=== PATIENT | male | born 1960 | race Caucasian/White ===

== ENCOUNTER → 2016-09-13 | Outpatient (CLI) | payer OTHER ==
[~2016-09-13] MED LIST: ALIGN4 MG; BENAZEPRIL-HCT1 EAC1 PO; DOXYCYCLINE100 MG PO; JANUMET 50-1,01 EACH PO; LEVAQUIN 750 M750 MG; LEVAQUIN500 MG PO; LIPITOR80 MG PO; NORCO 5-325 TA1 EACH PO; PLAVIX75 MG PO
== END | disposition disaster alternative care site (69) ==
LOC: GRAD 08:00
DX: I73.9 Peripheral vascular disease, unspecified (principal); L98.499 Non-pressure chronic ulcer of skin of other sites with unspecified severity; I70.208 Unspecified atherosclerosis of native arteries of extremities, other extremity; I74.5 Embolism and thrombosis of iliac artery; I74.8 Embolism and thrombosis of other arteries; E27.8 Other specified disorders of adrenal gland
CPT/HCPCS: Q9967

== ENCOUNTER 2016-09-20 15:27 | Inpatient (IN) | payer OTHER ==
[~2016-09-20] VITALS: Ht 193 cm; Wt 136.4 kg
--- NOTE | ~2016-09-20 | CON ---
an updated addendum is currently being transcribed. d: 09/21/16 0049 t: 09/21/16 0857, CONSULTATION REPORT
--- NOTE | ~2016-09-20 | CON ---
PATIENT'S NAME: LIONEL SIMMONS [facility] AGE: 56 Y [address] ROOM: [place] [address] LOCATION: GPCU ADMIT DATE: 09/20/2016 Consultation DISCHARGE DATE: FAMILY PHYSICIAN: Christian Harris MD ATTENDING PHYSICIAN: YENNIFER WRIGHT DATE OF CONSULTATION: 09/21/2016 REFERRING PHYSICIAN: HUGO BARKSDALE MD INFECTIOUS DISEASE CONSULTATION REASON FOR EVALUATION: Osteomyelitis, PVD. CHIEF COMPLAINT: The patient states he has a sore in his foot. HISTORY OF PRESENT ILLNESS: Mr. Simmons is a 56-year-old man with diabetes. He is also apparently with symptomatic vascular disease. Starting several months ago, he noticed a wound to base of lateral side of the right 5th toe. He was seen by Podiatry. He received some antibiotics. He cannot tell me what he received. Minimal improvement. About 3 weeks ago, there was some sort of surgical procedure. I do not have any details of this. He was given IV antibiotics for about 8 days. He cannot tell me what antibiotic this was. It was once a day. He was then changed to levofloxacin, which he was on up until admission. Unfortunately, there was not much improvement and so he has been admitted here. He underwent vascular study today, which showed significant disease, in need of bypass. He has not had any fevers. I am asked to evaluate. I do not have any old culture data. I do not have any old radiology. I do not have any palpations surgical notes. This makes evaluation somewhat difficult. The patient denies any fevers. He denies any ascending cellulitis. Apparently, there was quite amount of erythema before he started the first antibiotic but this has resolved. PAST MEDICAL HISTORY: Significant for diabetes mellitus, peripheral vascular disease, high blood pressure. ALLERGIES: NO KNOWN ANTIBIOTIC ALLERGIES. SOCIAL HISTORY: Positive for tobacco use with quitting about a day or so prior to admission. No alcohol or drug abuse. PATIENT'S NAME: LIONEL SIMMONS [facility] AGE: 56 Y [address] ROOM: [place] [address] LOCATION: GPCU ADMIT DATE: 09/20/2016 Consultation DISCHARGE DATE: FAMILY PHYSICIAN: Christian Harris MD ATTENDING PHYSICIAN: YENNIFER WRIGHT FAMILY HISTORY: Positive for heart disease and malignancy. REVIEW OF SYSTEMS: Pertinent positives include: 1. Neurologic: The patient with some neuropathy of his foot but still has pain at the lateral aspect. 2. Vascular: The patient with claudication type symptoms. As the patient denies other symptoms, remainder of 11-system review of systems is otherwise negative. PHYSICAL EXAMINATION: VITAL SIGNS: Temperature 98.3, heart rate 74, blood pressure 147/68. GENERAL: The patient is lying in bed, in no acute distress. Eating a sandwich. HEENT: The patient is anicteric. No conjunctival lesions noted. Ears, Nose, and Throat: Food debris. CARDIOVASCULAR: Heart is regular rate and rhythm. RESPIRATORY: Breathing is easy and unlabored. Lungs are clear anterolaterally. GASTROINTESTINAL: Abdomen is soft, nontender. Normoactive bowel sounds are present. GENITOURINARY: No suprapubic tenderness. NEUROLOGIC: The patient is awake, alert, appropriate in conversation. No encephalopathy. LYMPHATICS: No popliteal lymphadenopathy. MUSCULOSKELETAL: No effusions of ankles, knees, fingers, wrists, elbows. INTEGUMENTARY: The patient with no cellulitis of the right foot. He does have sutures intact on the lateral aspect of the foot. LABORATORY STUDIES: Blood cultures here are negative. ASSESSMENT AND RECOMMENDATIONS: Foot osteomyelitis? I have no radiology operative notes or cultures, so I am not even entirely certain that there is osteomyelitis present. Given the longstanding nature, I would suspect that there is some, but it would be nice to have actual proof. Can outpatient records be obtained? For now, I would keep him off antibiotics. There is no evidence of any soft tissue infection. He is to have vascular work done to try to increase blood flow. I would recommend if old cultures are not forthcoming or useful, obtaining new cultures of the bone off antibiotics for a week. If we are to try to sterilize bone in a patient with significant vascular disease, we need pathogen to know what antibiotics to use for best efficacy. As long as there PATIENT'S NAME: LIONEL SIMMONS [facility] AGE: 56 Y [address] ROOM: [place] [address] [facility] ADMIT DATE: 09/20/2016 Consultation DISCHARGE DATE: FAMILY PHYSICIAN: Christian Harris MD ATTENDING PHYSICIAN: YENNIFER WRIGHT K is no ascending cellulitis, there is no harm to being off antibiotics for a week or so. The alternative would be a 5th ray amputation, but it would be nice to have actual evidence of osteomyelitis prior to go there. Thank you allowing me to participate in the care of Mr. Simmons. MD JEFFRY PHAN/praveen /[id number] d: 09/21/[id number] t: 09/22/16 1054, CONSULTATION REPORT
--- NOTE | ~2016-09-20 | CON ---
PATIENT'S NAME: LIONEL SIMMONS [facility] AGE: 56 Y [address] ROOM: [address] [address] [facility] ADMIT DATE: 09/20/2016 Consultation DISCHARGE DATE: FAMILY PHYSICIAN: Christian Harris MD ATTENDING PHYSICIAN: YENNIFER JOHNSON DATE OF CONSULTATION: 09/21/2016 REFERRING PHYSICIAN: HUGO BARKSDALE MD REASON FOR CONSULTATION: Preop evaluation as well as need for peripheral angiogram via right wrist access for nonhealing wound and severe claudication symptoms. HISTORY OF PRESENTING ILLNESS: The patient is a very pleasant, 56-year-old male who has a history of tobacco abuse and severe peripheral vascular disease with evidence of osteomyelitis to the right foot, post debridement about 3 weeks ago by a horticulture superintendent. He also is diabetic, and there is family history of premature coronary artery disease. After his foot surgery, the wound failed to heal. He had evidence of acute infection as well, and he was started on IV antibiotics for 8 days. During his previous visit, he had a CTA that showed bilateral common femoral artery stenosis with multiple areas of high-grade stenosis and occlusion in the right common iliac and the right common femoral artery with occlusion of the proximal and mid right SFA and then an occlusion of the distal left SFA with areas of severe stenosis at the left common femoral artery. There is occlusion of the distal right popliteal and at least [id number] stenosis of the distal left popliteal artery as well. There is 3-vessel runoff bilaterally. The patient has severe claudication with ambulation and can walk, at the most, about 30 yards. He denies rest claudication. Prior to all of this, about 6 months ago, he was more active and used to lynch and fish. He does not recall any severe symptoms of chest discomfort; however, his functional capacity has been declining in the past 3 months at least. He denies fever or chills. No stroke-like symptoms. No other acute complaints at this time except for the pain in his foot on the right side. PAST MEDICAL HISTORY: 1. PVD. 2. Hypertension. 3. Hyperlipidemia. 4. Osteomyelitis of the right ankle and foot. PAST SURGICAL HISTORY: 1. Bilateral shoulder surgeries. 2. Appendectomy. PATIENT'S NAME: LIONEL SIMMONS [facility] AGE: 56 Y [address] ROOM: [address] [address] LOCATION: GPCU ADMIT DATE: 09/20/2016 Consultation DISCHARGE DATE: FAMILY PHYSICIAN: Christian Harris MD ATTENDING PHYSICIAN: YENNIFER JOHNSON FAMILY HISTORY: Positive for premature history of coronary artery disease in his father, he had an CT at age 59. SOCIAL HISTORY: The patient has extensive tobacco use, he reports he quit just 2 days ago. He smoked about 1-1/2 packs per day prior to this. Social drinker. No illicit drug abuse or alcohol abuse. REVIEW OF SYSTEMS: All review of systems discussed with the patient. Pertinent positives and negatives mentioned in the History of Presenting Illness. MEDICATIONS: 1. Cefazolin IV. 2. Alogliptin 12.5 b.i.d. 3. Glucophage XR 1000 b.i.d. 4. HydroDIURIL 25 mg q.a.m. 5. Lipitor 80 q.h.s. 6. Plavix 75 daily. 7. Zestril 20 mg q.a.m. 8. Novolin sliding scale insulin. ALLERGIES: NONE. PHYSICAL EXAMINATION: VITAL SIGNS: Blood pressure is 151/72, afebrile, pulse is 68, O2 saturation is 94% on room air, and respirations 14. CONSTITUTIONAL: The patient is awake, alert, and not in any apparent distress. LUNGS: Clear to auscultation bilaterally, nonlabored. CARDIAC: Regular rhythm. No murmurs, gallops, or rubs. VASCULAR: No palpable pedal pulses. ABDOMEN: Soft. Bowel sounds positive. Nontender and nondistended. SKIN: Warm and dry. There is ulcer on the right side of his foot, and there is a dressing at this time. EXTREMITIES: No significant lower extremity edema. NEUROLOGIC: He is alert and able to move all extremities against gravity. Speech is normal. PSYCHIATRIC: Oriented to time, place, and person. HEENT: Mucous membranes moist. Eyes: No xanthelasma. LABORATORY DATA: Sodium 140, potassium 4.3, chloride 108, CO2 of 24, glucose 99, BUN 14, and PATIENT'S NAME: LIONEL SIMMONS [facility] AGE: 56 Y [address]: [address] [address] [facility] ADMIT DATE: 09/20/2016 Consultation DISCHARGE DATE: FAMILY PHYSICIAN: Christian Harris MD ATTENDING PHYSICIAN: YENNIFER JOHNSON creatinine 0.9. Albumin 3.6 and globulin 3.6. AST 17 and ALT 25. GFR greater than 60. CPK 172, CK-MB 3.9, and troponin 0.04. The proBNP was 720. A1c 6.8. WBC 10.1, platelets 250, and H and H 15.7 and 47.2. Vascular studies: Arterial duplex: ROMMEL right side 0.55, left side 0.68. 75 to 99 right CLINICAL PHARMACOLOGIST stenosis, 50 to 75 right mid SFA stenosis, and right mid to distal SFA appears occluded. On the left side, 75% to 99% left CLINICAL PHARMACOLOGIST stenosis and 75 to 99 left PFA stenosis. Chest x-ray shows no acute cardiopulmonary process. IMPRESSION AND PLAN: 1. Severe peripheral vascular disease with severe intermittent claudication affecting the right lower extremity, and symptoms occur with walking as less as 30 yards, and he needs to rest for 10 minutes before he can resume activities. 2. History of numerous cardiovascular risk factors including positive tobacco use, peripheral vascular disease, hypertension, diabetes, hyperlipidemia, and positive family history of premature coronary artery disease. Prior to potential upcoming high-risk vascular surgery, it is indicated to proceed with a stress test to evaluate for ischemic burden and then decide whether he needs a coronary angiogram to define his coronary anatomy prior to high-risk surgery. I will proceed with a stress test first, and that way, if he needs a catheterization, that can be done at the same time as the peripheral angiogram. Dr. Johnson would like to proceed at this time with a peripheral angiogram and runoff to define the peripheral vasculature as well as the lesion severities and plan for high-risk surgery and possible hybrid surgery with open as well as endovascular options based on the peripheral angiogram. Continue guideline-directed medical therapy. Encouraged to stop smoking. Aggressive blood pressure and lipid control. We will also get fasting lipid profile in the morning and adjust his lipid management according to the numbers we get. Risks and benefits of the cardiac cath as well as peripheral angiogram discussed with the patient. Risks of bleed, bruise, infection 1 in 100 cases, risk of heart attack, , stroke, CT, losing a limb, and ending up on dialysis less than 1 in 1000 cases. The patient does not have any contrast allergies. He understands and is agreeable to proceed with plan. Thank you very much for allowing us to participate in the care of Mr. Simmons. PATIENT'S NAME: LIONEL SIMMONS [facility] AGE: 56 Y [address] ROOM: [place] [address] [facility] ADMIT DATE: 09/20/2016 Consultation DISCHARGE DATE: FAMILY PHYSICIAN: Christian Harris MD ATTENDING PHYSICIAN: YENNIFER JOHNSON CESAR GALAN MD AT/modl /[id number] d: 09/21/16 1225 t: 09/26/16 1339, CONSULTATION REPORT
--- NOTE | ~2016-09-20 | ENPV ---
Vascular Lower Arterial Plethysmography Procedure Demographics Patient Name LIONEL SIMMONS Date of Study 09/24/2016 Patient Number [id number] Gender Male Date of 1960 Age 56 Visit Number [id number] Height 76 Accession Number [id number] Weight 304.9 Referring Steven Abreu MD Interpreting Alex Rocha MD Physician Alex Rocha MD Physician Physician Ordering Physician Alex Rocha First Helper Meter Repair Shop Supervisor Jaren Nelson T Conclusions Summary Ankle brachial index on the right is .65 for PT moderate arterial disease at rest. Ankle brachial index on the right is .40 for DP severe arterial disease at rest. Could not find a right Toe waveform,unable to perform TBI. Procedure Type of Study: Extremities Arteries:Lower Arterial Plethysmography, Ankle/Brachial Indicies. Indications for Study:Non Healing Wounds. Appropriate Use Criteria:9 Allergies - No known allergies. Patient Status:Routine. Study Location:Inpatient Portable. Technical Quality:Adequate visualization. Risk Factors - The patient's risk factor(s) include: insulin-treated diabetes mellitus, dyslipidemia, lack of physical activity and arterial hypertension. - The patient has a current/recent (within 1 year) tobacco history. - The patient's last creatinine was 0.9 mg/dl. Velocities are measured in cm/s ; Diameters are measured in cm Pressures + +----+ +---------+--------+ + + ! ! !Right ! !Left ! ! ! + +----+ +---------+--------+ + + !Location ! !Pressure !Ratio ! !Pressure !Ratio ! + +----+ +---------+--------+ + + !Ankle PT ! !94 !0.65 ! ! ! ! + +----+ +---------+--------+ + + !DP ! !57 !0.4 ! ! ! ! + +----+ +---------+--------+ + + - Brachial Pressure:Right: 144.Left:124. - ROMMEL:Right: 0.65. Signature dtt: YENNIFER WRIGHT dtd: 09/24/16 104 Physician Self Edit
--- NOTE | ~2016-09-20 | ECHO ---
Transthoracic Echocardiography Report (TTE) Demographics Patient Name LIONEL SIMMONS Date of Study 09/21/2016 Patient Number [id number] Visit Number [id number] Date of 1960 Room Number G6303 Accession Number [id number] Gender Male Age 56 year(s) Referring Stevenvikash Abreu Rail Signal Designer Gianna Patrick RVT, Physician MD KATY Rocha Physician Interpreting Estrada Rubio Manager Asset Management Physician Supervising Ordering Physician Madhavi Tapia MD, MD/MLP Nurse Stress Pressurised Container Filler Conclusions Contractility Score Summary Normal Left Ventricular contractility was noted. Summary Normal LV/RV size and systolic function. The estimated left ventricular ejection fraction is 60-65%. Moderate concentric left ventricular hypertrophy. Diastolic assessment reveals normal relaxation. No significant valvular abnormalities. No evidence of pericardial effusion. Procedure Type of Study TTE procedure:2D Echocardiogram. Procedure Date Date: 09/21/2016 Start: 10:45 AM Study Location: Inpatient Portable Technical Quality: Adequate visualization Indications:Coronary artery disease and pre surgical clearance. Appropriate Use Criteria: 8 Patient Status: Routine Rhythm: NSR HR: 68 bpm BP: 153/67 mmHg Allergies - No known allergies. M-Mode/2D Measurements LV Diastolic Dimension: 5.08 cm LV Systolic Dimension: 3.07 cm LV Septum Diastolic: 1.67 cm LV PW Diastolic: 1.59 cm AO Root Dimension: 3.1 cm Cardiac Output: 6.67 l/min AV Cusp Separation: 1.8 cm RV Diastolic Dimension: 3.19 cm LA volume: 59 ml LVOT: 2.5 cm RV Base: 3.33 cm LVOT VTI: 20 cm RV Mid: 2.07 cm LV Stroke volume: 98.12 ml TAPSE: 3.15 cm TDI-S': 16.6 cm/s Doppler Measurements AV Peak Velocity: 1.23 m/s MV Peak E-Wave: 0.73 m/s AV Peak Gradient: 6.05 mmHg MV Peak A-Wave: 0.53 m/s AV Mean Gradient: 3 mmHg MV E/A Ratio: 1.38 LVOT Peak Velocity: 1 m/s MV P1/2t: 76 msec TR Gradient:25.4 mmHg PV Peak Velocity: 0.94 m/s Estimated RAP:5 mmHg PV Peak Gradient: 3.54 mmHg Estimated RVSP: 30 mmHg Estimated PASP: 30.4 mmHg E' Septal Velocity: 0.06 m/s A' Septal Velocity: 0.09 m/s E' Lateral Velocity: 0.09 m/s A' Lateral Velocity: 0.11 m/s Findings Left Ventricle Moderate concentric left ventricular hypertrophy. Diastolic assessment reveals normal relaxation. Right Ventricle Normal right ventricle structure and function. Left Atrium Normal left atrial size. There is no evidence of patent foramen ovale or atrial septal defect by color Doppler. Right Atrium Normal right atrial size. IVC measures 2.79 cm with inspiratory collapse. Mitral Valve Normal mitral valve structure and function. Trivial mitral regurgitation by color Doppler. Aortic Valve The aortic valve is mildly sclerotic. Tricuspid Valve Normal tricuspid valve structure and function. Trivial tricuspid regurgitation by color Doppler. Pulmonic Valve Normal pulmonic valve structure and function. Pericardial Effusion No evidence of pericardial effusion. Miscellaneous The ascending aorta maximum diameter measures 3.6 cm. Pleural Effusion No evidence of pleural effusion. Contractility Score LV regional wall motion:(0-Non visualized 1-Normal 2-Hypokinesis 3-Akinesis 4-Dyskinesis 5-Aneurysm) Signature dtt: CESAR GALAN dtd: 09/21/16 1045 Physician Self Edit
--- NOTE | ~2016-09-20 | ENPV ---
Vascular Lower Extremity Vein Mapping and Lower Extremities DVT Study Procedure Demographics Patient Name LIONEL SIMMONS Date of Study 09/21/2016 Patient Number [id number] Gender Male Date of 1960 Age 56 Visit Number [id number] Height 76 Accession Number [id number] Weight 304.9 Referring Steven Abreu MD Interpreting Alex Rocha MD Physician Corina Davey Physician NET DEVELOPER WITH [employer] Physician Ordering Physician Corina Davey Pbx Inspector NET DEVELOPER WITH [employer] Corduroy Brusher Operator Romain Vila RVT Conclusions Summary No evidence of deep vein thrombosis or superficial thrombus in bilateral lower extremities. Procedure Type of Study: Veins:Lower Extremity Vein Mapping, Vein Mapping, Lower Extremities DVT Study, Venous Duplex Lower Extremity Bilateral. Indications for Study:Chronic Ulcer, Pre-op for vein harvesting and Vein mapping. Appropriate Use Criteria:8 Patient Status:Routine. Study Location:Imaging Center. Technical Quality:Adequate visualization. Risk Factors - The patient's risk factor(s) include: diabetes mellitus and arterial hypertension. - The patient has a current/recent (within 1 year) tobacco history. Velocities are measured in cm/s ; Diameters are measured in cm Right Lower Extremities DVT Study Measurements Right 2D and Doppler Measurements + + + + +------+------+ + !Location !Visualized!Compressibility!Thrombosis!Signal!Reflux!Reflux ! ! ! ! ! ! ! !(sec) ! + + + + +------+------+ + !GSV Thigh !Yes !Yes !None !Phasic!No ! ! + + + + +------+------+ + !Common !Yes !Yes !None !Phasic!No ! ! !Femoral ! ! ! ! ! ! ! + + + + +------+------+ + !Prox !Yes !Yes !None !Phasic!No ! ! !Femoral ! ! ! ! ! ! ! + + + + +------+------+ + !Mid Femoral!Yes !Yes !None !Phasic!No ! ! + + + + +------+------+ + !Dist !Yes !Yes !None !Phasic!No ! ! !Femoral ! ! ! ! ! ! ! + + + + +------+------+ + !Popliteal !Yes !Yes !None !Phasic!No ! ! + + + + +------+------+ + !Gastroc !Yes !Yes ! ! ! ! ! + + + + +------+------+ + !PTV !Yes !Yes ! ! ! ! ! + + + + +------+------+ + !Peroneal !Yes !Yes ! ! ! ! ! + + + + +------+------+ + Left Lower Extremities DVT Study Measurements Left 2D and Doppler Measurements + + + + +------+------+ + !Location !Visualized!Compressibility!Thrombosis!Signal!Reflux!Reflux ! ! ! ! ! ! ! !(sec) ! + + + + +------+------+ + !GSV Thigh !Yes !Yes !None !Phasic!No ! ! + + + + +------+------+ + !Common !Yes !Yes !None !Phasic!No ! ! !Femoral ! ! ! ! ! ! ! + + + + +------+------+ + !Prox !Yes !Yes !None !Phasic!No ! ! !Femoral ! ! ! ! ! ! ! + + + + +------+------+ + !Mid Femoral!Yes !Yes !None !Phasic!No ! ! + + + + +------+------+ + !Dist !Yes !Yes !None !Phasic!No ! ! !Femoral ! ! ! ! ! ! ! + + + + +------+------+ + !Popliteal !Yes !Yes !None !Phasic!No ! ! + + + + +------+------+ + !Gastroc !Yes !Yes ! ! ! ! ! + + + + +------+------+ + !PTV !Yes !Yes ! ! ! ! ! + + + + +------+------+ + !Peroneal !Yes !Yes ! ! ! ! ! + + + + +------+------+ + Velocities are measured in cm/s ; Diameters are measured in cm + ++--------++--------+ !Superficial - Great Saphenous Vein !!Right !!Left ! + ++--------++--------+ !Location !!Diameter!!Diameter! + ++--------++--------+ !Sapheno Femoral Junction !!0.44 !!0.64 ! + ++--------++--------+ !GSV High Thigh !!0.3 !!0.31 ! + ++--------++--------+ !GSV Mid Thigh !!0.32 !!0.28 ! + ++--------++--------+ !GSV Low Thigh !!0.31 !!0.34 ! + ++--------++--------+ !GSV Knee !!0.35 !!0.3 ! + ++--------++--------+ !GSV High Calf !!0.3 !!0.25 ! + ++--------++--------+ !GSV Mid Calf !!0.32 !!0.27 ! + ++--------++--------+ !GSV Low Calf !!0.35 !!0.28 ! + ++--------++--------+ - Number of vein branches on the right side:3 below knee. Signature dtt: YENNIFER WRIGHT dtd: 09/21/16 0933 Physician Self Edit
--- NOTE | ~2016-09-20 | OR ---
PATIENT'S NAME: LIONEL SIMMONS [facility] AGE: 56 Y [address] ROOM: [address] [address] LOCATION: GPCU ADMIT DATE: 09/20/2016 OR/Procedure Report DISCHARGE DATE: FAMILY PHYSICIAN: Christian Harris MD ATTENDING PHYSICIAN: AJ JOHNSON SURGEON: Aj Johnson MD HANGERSMITH: DATE OF PROCEDURE: 09/22/2016 POSTOPERATIVE DIAGNOSIS: Critical limb ischemia of the right lower extremity. POSTOPERATIVE DIAGNOSIS: Critical limb ischemia of the right lower extremity. PROCEDURE: Right common femoral endarterectomy with bovine pericardial patch. OPEN HEARTH STOCKYARD SUPERVISOR: ROSALIA Jo. ANESTHESIA: General. ESTIMATED BLOOD LOSS: 700 mL. OPERATIVE FINDINGS: Strong DP signal at the end of the case. DESCRIPTION OF PROCEDURE: The patient was brought to the operating room, placed under general anesthesia, prepped and draped in a sterile manner, preoperative time-out was performed. The patient received preoperative antibiotics. We made a standard incision in a vertical manner in the right groin, dissected down the fascia, incised the fascia in a longitudinal manner, and dissected out the superficial femoral artery, the profunda, as well as the common femoral artery. The patient had extensive plaque extending up the common femoral artery underneath the inguinal ligament. We gave 5000 units of heparin, [place] [id number] for the case which was reversed with use of protamine. We placed a clamp as far distally as we could and then placed a clamp on the SFA and the profunda. We knew the SFA was occluded from our preop imaging. We made an arteriotomy with an 11 blade and extended with De Oliveira scissors along the common femoral. We then removed the plaque in its entirety. We cleaned up as far as we could with a pituitary clamp to remove any further plaque. We then patched it using 2 running 6-0 Dumfries sutures with a bovine patch. We removed the clamps. There was a strong pulse and a strong DP signal in the foot at that time; however, the proximal pulse appeared weak and it appeared that this flow was mainly coming from collateral flow. We placed a sheath into the patch using Seldinger technique and a micropuncture kit, and then performed an angiogram which showed that there was a large plaque burden even more proximal, which was occluding the common femoral where we already performed an endarterectomy. It was very difficult to get a clamp PATIENT'S NAME: LIONEL SIMMONS [facility] AGE: 56 Y [address] ROOM: [id number] [place], [place] [address] LOCATION: [facility] ADMIT DATE: 09/20/2016 OR/Procedure Report DISCHARGE DATE: FAMILY PHYSICIAN: Christian Harris MD ATTENDING PHYSICIAN: AJ JOHNSON any more proximally, but we did so clamping blindly deep and passed the inguinal ligament. We opened up the patch once again and once again we reached inside and removed as much plaque as we could, at this point having excellent flow. We then just re-patched the artery with another bovine pericardial patch and Dumfries sutures. At this time, there was a strong pulse along the proximal portion of the common femoral and also a strong DP signal. Heparin was reversed. Deep layers were closed with 2-0 and 3-0 Vicryl, skin was closed running 4-0 Monocryl, and skin was closed with Prevena vacuum dressing. The patient tolerated the procedure well, awoken in the operating room, and transferred to recovery room and back up to the floor. AJ JOHNSON MD FKM/modl /[id number] d: 09/22/162056 t: 09/28/16 1628, OPERATIVE SUMMARY
--- NOTE | ~2016-09-20 | CON ---
PATIENT'S NAME: LIONEL SIMMONS [facility] AGE: 56 Y [address] ROOM: [address] [address] LOCATION: GPCU ADMIT DATE: 09/20/2016 Consultation DISCHARGE DATE: FAMILY PHYSICIAN: Christian Harris MD ATTENDING PHYSICIAN: YENNIFER JOHNSON REFERRING PHYSICIAN: HUGO BARKSDALE MD CHIEF COMPLAINT: Osteomyelitis of the right foot and severe peripheral vascular disease with intermittent claudication. HISTORY OF PRESENT ILLNESS: This is a 56-year-old, male who says that roughly for 1 year, he has been having symptoms that are consistent with bilateral lower extremity pain associated with exertion and gets relief with rest. These symptoms are consistent with intermittent claudication and around June 2016, the patient noticed wound around his right fifth toe. The patient saw his oil program compliance specialist and he was given some antibiotics. However, it only improved a little. Therefore, roughly 3 weeks ago, the oil program compliance specialist did what seems like incision and drainage according to the patient. The patient says that at that time, some purulent secretion came out and that he was given IV antibiotics and then switched to p.o. antibiotics. Currently, he is taking p.o. Levaquin. However, he has failed to notice much improvement and he is concerned that the right fifth toe is again infected. He does not complain of much pain due to his peripheral neuropathy from his long-standing diabetes. However, he does mention that his bilateral lower extremities do get very tender with exertion consistent with intermittent claudication and the pain will go away with rest. At baseline, the patient denies any chest pain or shortness of breath at rest or on exertion. He also denies any previously diagnosed coronary artery disease or atrial fibrillation or any other arrhythmia or any history of congestive heart failure or any cardiopulmonary disease in the past. The patient's ability to ambulate has been severely limited by his peripheral vascular disease. His METS score is less than 4 given that the patient can only walk a few steps before his intermittent claudication limits his ability to ambulate further. He was a former heavy smoker about 1-1/2 pack per day for the last 3 years. He just quit roughly 3 days ago. His father also has a myocardial infarction and from that at the age of 59. He also has hypertension and diabetes type 2. He is also obese. REVIEW OF SYSTEMS: As mentioned in the history of present illness. All other systems were reviewed and were negative except as mentioned in the history of present illness. PAST MEDICAL HISTORY: PATIENT'S NAME: LIONEL SIMMONS [facility] AGE: 56 Y [address] ROOM: [id number] [place], [place] [address] LOCATION: GPCU ADMIT DATE: 09/20/2016 Consultation DISCHARGE DATE: FAMILY PHYSICIAN: Christian Harris MD ATTENDING PHYSICIAN: YENNIFER JOHNSON 1. Diabetes type 2. 2. Peripheral vascular disease with intermittent claudication. 3. Hypertension. ALLERGIES: NO KNOWN DRUG ALLERGIES. HOME MEDICATIONS: Currently, is being reconciled. SOCIAL HISTORY: The patient was a former cigarette smoker about one and half pack per day for the last 3 years, he just quit about 3 days ago. He denies any alcohol or any illegal drug use. PAST SURGICAL HISTORY: 1. Status post bilateral shoulder surgery. 2. Status post appendectomy. 3. Status post right foot surgery by his Podiatry, seems like incision and drainage roughly 3 weeks ago. FAMILY HISTORY: Mother from ovarian cancer at old age and father from myocardial infarction at age 59. He has 2 brothers and 2 sisters, all of them are healthy without any coronary artery disease according to the patient. PHYSICAL EXAMINATION: VITAL SIGNS: At the time of my evaluation, temperature was 97.5, heart rate was 69, respirations were 16, blood pressure was 139/75, saturation was 94% on room air. GENERAL APPEARANCE: Alert and oriented x3, in no acute distress. HEENT: Pupils are equally round and reactive to light. Extraocular muscles intact. Anicteric sclerae. Nasal turbinates are normal bilaterally. Moist oral mucosa. NECK: No obvious JVD on examination. CARDIOVASCULAR: Regular rate and rhythm. Could not appreciate murmur, rubs, or gallops at the moment. Normal S1, S2. RESPIRATORY. Some decreased breath sounds diffusely; however, clear to auscultation. No rales, no rhonchi, no wheezing, and no crackles. ABDOMEN: obese, soft, nontender, nondistended, bowel sounds are present, and no hepatosplenomegaly. Bowel sounds are present. EXTREMITIES: He does have bilateral lower extremity edema on palpation. Dorsalis pedis pulse and posterior tibialis pulse bilaterally were very difficult to be palpated. There were not palpable and with the Doppler also PATIENT'S NAME: LIONEL SIMMONS [facility] AGE: 56 Y [address] ROOM: [id number] [place], [place] [address] LOCATION: GPCU ADMIT DATE: 09/20/2016 Consultation DISCHARGE DATE: FAMILY PHYSICIAN: Christian Harris MD ATTENDING PHYSICIAN: YENNIFER JOHNSON has weak pulse bilaterally. No cyanosis. The right foot is covered by dressing. Currently, no purulent drainage. SKIN: No cyanosis and the right foot is covered by dressing. MUSCULOSKELETAL: Range of motion intact. NEUROLOGICAL: Decreased sensation to light touch and has pinprick sensation in both feet. Otherwise, unremarkable. LABORATORY DATA: Lactic acid 0.9. Troponin less than 0.04. ProBNP 720, CPK 172. White blood cells 10.1, hemoglobin 15.7, hematocrit 47.2, platelets 250. Glucose 99, BUN 14, creatinine 0.9. Sodium 140, potassium 4.3, chloride 108. CO2 24, calcium 8.5, total protein 7.2, albumin 3.6, AST 17, ALT 25, alkaline phosphatase 53, total bilirubin 0.5, anion gap 11.3, globulin 3.6, GFR more than 60. ESR 7, hemoglobin A1c 6.8, INR 1.02. CK-MB 3.9, CRP 0.33, procalcitonin less than 0.05. IMAGING STUDIES: Chest x-ray on admission, it was read as no acute process. EKG on admission, sinus rhythm with Q-wave in the inferior leads. Normal heart rate. No other abnormality identified. No prior EKG for comparison. EKG was done on September 20, 2016, on admission. No acute ST-elevation or depression. No T-wave inversion. AK, QRS, and QTc all within normal limits. ASSESSMENT AND PLAN: 1. Regarding his right foot wound concerning for osteomyelitis and also a severe peripheral vascular disease with intermittent claudication: Defer to Vascular Surgery for proposed angiogram and then we Vascular Surgery Team will decide on the treatment depending on the finding on the angiogram. In addition, I will consult Infectious Disease for the questionable osteomyelitis on the right foot. 2. Regarding his preoperative medical evaluation for noncardiac surgery: The patient is a high risk candidate undergoing a high risk surgery which is vascular surgery. His METS score is less than 4. He has clinical risk factors, which include Q-waves on the EKG as well as undergoing a high risk of vascular surgery. The patient could also have coronary artery disease given that he has severe peripheral vascular disease and is obese and also former heavy smoker and has hypertension and also diabetes. I have already spoken to the on-call pipe smoker machine operator, Dr. Katz and the plan will be having a transthoracic echo and also Lexiscan stress test in the morning. Depending on the finding, the patient will require angiography and probably cardiac catheterization if the stress test is positive. I have already updated Dr. Johnson about the plan of care. I have also updated the patient about further testing. All are in agreement with the plan. PATIENT'S NAME: LIONEL SIMMONS [facility] AGE: 56 Y [address] ROOM: [place] [address] LOCATION: GPCU ADMIT DATE: 09/20/2016 Consultation DISCHARGE DATE: FAMILY PHYSICIAN: Christian Harris MD ATTENDING PHYSICIAN: YENNIFER JOHNSON 3. Regarding his right foot wound with questionable osteomyelitis: I will consult Infectious Disease for consultation on Wednesday September 21, 2016. The patient is currently hemodynamically stable. I will hold his home p.o. Levaquin for now since he says it doesn't help him and his right foot problem developed while he is on levaquin. Further imaging test, I will defer to the Vascular Surgery. 4. Two sets of blood cultures already obtained. 5. Regarding his hypertension: Continue home medication with holding parameter. 6. Regarding his diabetes type 2: I will check A1c hemoglobin A1c and do sliding scale insulin and continue his home oral medications. His kidney function is normal. N.p.o. after midnight. While he is n.p.o., he will get IV fluids. 7. Regarding his deep vein thrombosis prophylaxis: For now, we will avoid pharmacological agents for the possible surgical intervention. 8. Regarding his code status: He is a full code. Time spent in care on the day of consultation is 55 minutes, where 20 minutes was spent on chart review and interview and also physical examination. The remaining of the time was spent on counseling and coordination of care with the vascular surgery and also on-call pipe smoker machine operator. The consult also includes answering all the questions and the concerns the patient had, and going over the plan of care with the patient and addressing all his questions to his satisfaction. Further plan will depend on clinical course. MD AUTUMN MOFFETT/praveen /[id number] d: 09/21/1653 t: 09/22/16816, CONSULTATION REPORT
--- NOTE | ~2016-09-20 | DS ---
PATIENT'S NAME: LIONEL SIMMONS [facility] AGE: 56 Y [address] ROOM: [address] [place] [address] LOCATION: GPCU ADMIT DATE: 09/20/2016 Discharge Summary DISCHARGE DATE: 09/26/2016 FAMILY PHYSICIAN: Christian Harris MD ATTENDING PHYSICIAN: Aj Johnson FINAL DIAGNOSIS: Peripheral arterial disease with critical limb ischemia. SECONDARY DIAGNOSES: 1. Coronary artery disease. 2. Diabetes mellitus type 2. 3. Hypertension. 4. Questionable early osteomyelitis. PROCEDURES: 1. Diagnostic left heart catheterization and peripheral angiogram with Dr. Joanne Dorado MD on 09/21/2016. 2. Right common femoral endarterectomy with bovine patch with Dr. Johnson on 09/22/2016. CONSULTATIONS: 1. Hospitalist for medical management. 2. Cardiology, Dr. Joanne Dorado. 3. Infectious Disease, Dr. Boy Khanna. HOSPITAL COURSE: This is a 56-year-old, male, admitted to [facility] on 09/20/2016 after presenting to [facility] in [place]. The patient was there for a followup appointment regarding vascular disease. The patient with an ulcer to the right 5th toe beginning in June. He was seen by a manager review and had local debridement. MRI obtained by manager review with fragmentation of the lateral aspect of the 5th metatarsal head. No significant marrow changes. The patient continued to have nonhealing wound with recurrent infections. He was referred to vascular surgery after arterial duplex revealed significant peripheral vascular disease bilaterally with elevated velocities at bilateral common femoral arteries, occluded right superficial femoral artery and monophasic waveforms throughout. Subsequently, the patient underwent a CTA with multiple areas of stenosis bilaterally with heavy calcium burden. Specifically involving the right common iliac artery and right common femoral artery with occlusion of the SFA. See history and physical for full patient details. The patient was admitted from [facility] for questionable osteomyelitis and signs of critical limb ischemia. On admission, vein mapping was obtained for potential bypass planning. Hospitalist was consulted for medication management and preop clearance. On admission labs were drawn including INR, PTT, troponin, CPK, CK-MB, proBNP, lactic acid, procalcitonin, CRP, ESR, hemoglobin A1c, and PATIENT'S NAME: LIONEL SIMMONS [facility] AGE: 56 Y [address] ROOM: [address] [place], [place] [address] LOCATION: GPCU ADMIT DATE: 09/20/2016 Discharge Summary DISCHARGE DATE: 09/26/2016 FAMILY PHYSICIAN: Christian Harris MD ATTENDING PHYSICIAN: Aj Johnson blood cultures x2. Chest x-ray obtained and found to be within normal limits. 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 Cardiology was consulted regarding EKG changes and significant history of cardiac risk factors. On 09/21/2016, the patient underwent transthoracic echo and Lexiscan stress. EF found to be 60-65%. Stress test was positive. The patient was taken to the fence laborer for left heart catheterization with possible percutaneous coronary intervention and peripheral angiogram with Dr. Katz. He was found to have right NNPS with ipsi and contralateral collaterals. Moderate disease in mid LAD 40%. The patient has 80 and 90% stenosis of the right common iliac, 90% stenosis of right common femoral artery and SFA with complete occlusion proximally with collateral and calcific vessels that reconstitute above knee, at level of popliteal with one vessel runoff via anterior tibialis artery. After angiogram findings, we planned for right common femoral artery endarterectomy with right common iliac stent to improve inflow. Infectious Disease evaluated the patient on 09/21/2016, recommended keeping the patient off antibiotics with no current evidence of soft tissue infection. They suggestive obtaining bone cultures or recent imaging to further guide treatment. On 09/22/2016, the patient underwent right common femoral artery endarterectomy with bovine patch with Dr. Johnson. Dr. Johnson was not able to get wire cross the right common iliac. Therefore, the patient will need to return at a later date once groin is healed, to attempt right common iliac stent placing again. Prevena VAC was placed to his right groin incision in the operating room. The patient tolerated the procedure well and after recovery was returned to the progressive care unit for monitoring of telemetry, vitals, lab surgical site, pain management, medication administration, and nursing assistance. Overnight, the patient was placed on bedrest. On postop day #1, the patient was found with moderate pain in his right groin, better improvement with pain medication. We were able to Doppler posterior tibialis and dorsalis pedis. We did call the patient's manager review for permission to remove sutures from his right foot. Betadine was applied daily. Foot was found without drainage or surrounding erythema. The patient was saline locked. Sevilla catheter removed and he was up to chair and bathroom postop day 1. The hospitalists increased doses of lisinopril and Coreg for uncontrolled hypertension. Postoperatively, we obtained ABIs with increase from 0.55 to 0.65 in the right leg. Postoperatively, the patient's hospital stay remained uneventful. He did appear to have improvement in wound appearance, as well as decrease in claudication. He is able to ambulate in the gómez without difficulty. DP and PT remained intact on Doppler. On postop day 4, the patient was found in a stable condition to be discharged home with Prevena VAC in place. LABORATORY DATA: White blood cell count trending 11.9, 10.1, 17.0, 16.5, 13.0, 13.2. Labs on admission, CPK 172, CK-MB 3.9, troponin less than 0.040, proBNP 720, hemoglobin A1c 6.8, CRP 0.33, lactate 0.9. Procalcitonin less than 0.05. Blood cultures with no growth at 5 days. Chemistry prior to discharge. Sodium 140, potassium 4.2, chloride 108, CO2 of 25, BUN 12, PATIENT'S NAME: LIONEL SIMMONS [facility] AGE: 56 Y [address] ROOM: [place] [address] LOCATION: GPCU ADMIT DATE: 09/20/2016 Discharge Summary DISCHARGE DATE: 09/26/2016 FAMILY PHYSICIAN: Christian Harris MD ATTENDING PHYSICIAN: Aj Johnson creatinine 0.8. Glucose 124. DISCHARGE ORDERS: The patient to be discharged from the hospital on a diabetic diet. He is to follow up with dietitian on 10/10/2016. He is also to avoid heavy lifting for 2 weeks. He is to follow up with Marley Rand at [facility] on 09/29/2016 for right groin incision evaluation and Prevena VAC removal. We will also need to discuss future re-attempt at right and common iliac stenting. He also has a followup appointment with Infectious Disease on 09/29/[address] Jones on 09/28/2016. He is to apply Betadine daily and dry gauze to right foot wound. He is to report any signs or symptoms of infection including redness, swelling, fevers, chills or drainage. DISCHARGE MEDICATIONS: 1. Galvumet extended release mg one tablet p.o. twice daily. 2. Atorvastatin 80 mg p.o. daily at bedtime. 3. Plavix 75 mg p.o. daily. 4. Benazepril/hydrochlorothiazide 20/12.5, one tablet p.o. daily. 5. Ennis 5/325 1 to 2 tabs p.o. every 4 hours as needed pain. DISPOSITION: The patient is discharged to home in a stable condition. He is to follow discharge orders as prescribed. Education about discharge including a wound VAC, home health, medications, prescriptions, diet activity, and followup appointments given to the patient. The patient verbalized understanding of the plan. No further questions or concerns. He is to follow discharge orders as prescribed. MARLEY RAND APRN FOR AJ JOHNSON MD TO/tracyl /[id number] d: 09/29/16 1410 t: 09/29/16 1531, DISCHARGE SUMMARY
--- NOTE | ~2016-09-20 | ESTC ---
Cardiac Perfusion Imaging Demographics Patient Name TROY Thompson Gender Male Patient Number [id number] Race Visit Number [id number] [place] [id number] Room Number G6303 Accession Number [id number] Height 76 inches Date of 1960 Weight 304.9 pounds Interpreting Estrada Rubio Date of study 09/21/2016 Physician MD Supervising MD/ARCHIEP Roberto Damon APRN NM Technologist Tarik Rivera Ordering Physician Estrada Rubio Stress MD echo technician Stress ECG Reading Roberto Damon APRN Nurse Leyda Regan Physician RN Propp Yanna RN Medications Reviewed with Patient prior to Procedure. Procedure Admit Source:Transfer acute care facility. Procedure Type: Nuclear Stress Test:Cardiolite Stress Test Procedure Start time: 09/21/2016 09:20 End time: 09/21/2016 09:30 Risk Factors The patient risk factors include:peripheral arterial disease, physical activity, Current/Recent(w/in 1 year) tobacco use, hypercholesterolemia, hypertension, insulin treated diabetes mellitus, last creatinine: 0.9 mg/dl, dyslipidemia and creatinine clearance: 179.28 ml/min. Conclusions Impression ECG portion of the lexiscan stress test is clinically negative for ischemia by diagnostic criteria. Myocardial perfusion imaging is moderately abnormal. The images reveal a partially reversible defect in the basal to mid inferior wall consistent with carissa-infarct ischemia in the territory of the right coronary artery . Overall left ventricular systolic function was abnormal with calculated LVEF of 41% with hypokinesis of the inferior wall, TID ratio was 1.21. This is a intermediate risk stress test. There are no previous studies for comparison . Stress Protocols Resting ECG Normal sinus rhythm. Pre-stress physical exam: Patient assessed by Renée MUNROE prior to testing. Chest - CTA Cardio - RRR, S1, S2 Predicted HR: 164 bpm HR response: Appropriate BP response: Appropriate Reason for termination:Infusion complete ECG Findings No ECG changes suggestive of ischemia. Arrhythmias Rare PVC's during stress. Symptoms Shortness of breath. Anxious. Complications Procedure complication: None. Stress Interpretation Appropriate hemodynamic response to Lexiscan. No significant ST-T wave changes with Lexiscan. ECG portion is negative for ischemia by diagnostic criteria. Will correlate with nuclear images. Imaging Results Summed scores - Summed stress score: 9 - Summed rest score: 4 - Summed difference score: 5 Stress ejection Ejection fraction:41 % EDV :188 ml ESV :111 ml Stroke volume :77 ml LV mass :164 gr Imaging Protocols Rest Stress Isotope:Tc99m Sestamibi IV Isotope: Tc99m Sestamibi IV Isotope dose:15.2 mCi Isotope dose:46.8 mCi Date:09/21/2016 07:27 Date:09/21/2016 09:23 Technique: SPECT Technique: Gated Supine SPECT Supine IV remains in place after procedure. Scan Time:45-60 minutes post Scan Time:45-60 minutes post injection injection Procedure Medications - Regadenoson (Lexiscan) 0.4 mg IV over 10-15 sec. . Medical History Admission Medications + +------+ + +---------+ + !Name !Dosage!Times per day !Start date!Stop date!Details ! + +------+ + +---------+ + !Aspirin (any) ! ! ! ! ! ! + +------+ + +---------+ + !Clopidogrel ! ! ! ! ! ! + +------+ + +---------+ + !JOVITA Inhibitor (any) ! ! ! ! ! ! + +------+ + +---------+ + !Statin (any) ! ! ! ! ! ! + +------+ + +---------+ + Admission Data Admission date: 09/20/2016 Admission Time: 15:27 Hospital Status: Inpatient. Signatures dtt: CESAR GALAN dtd: 09/21/16 0920 Physician Self Edit
--- NOTE | ~2016-09-20 | CON ---
an updated dictation is currently being transcribed. d: 09/21/16 0122 t: 09/21/16 0847, CONSULTATION REPORT
--- NOTE | ~2016-09-20 | CATH ---
Demographics Patient Name TROY Thompson Gender Male Date of 1960 Age 56 year(s) Patient Number [id number] Date of Study 09/21/2016 Visit Number [id number] Room Number G6[address] [place] [id number] Ht 193.04 cm Wt 138.3 kg Referring Steven Abreu MD Primary Physician Physician Performing [place] Secondary Physician Physician Joanne GONZALES Diagnostic [facility] Assisting Physician Physician Joanne GONZALES Interventional Physician Supervisor Heading Physician Findings and Conclusions Diagnostic Findings and Conclusion LHC: Distal RCA CARBON CUTTER with ipsi and contralateral collaterals. Moderate disease in mid LAD 40% 2 tandem lesions. LVEDP \E\R\E\ 12 mmHg, no gradient across the AV. Diagnostic Recommendations He is at moderate risk for periop cardiac events from vascular surgery. No indication for revascularization prior to upcoming surgery. Continue GDMT. I would like to thank Dr. Jhonson for the opportunity to participate in the care of Mr Brady . 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 Peripheral Recommendations Critical multi-level PVD on the right side from CI, ROPE TWISTING MACHINE OPERATOR and SFA with 1 vs runoff, AT. PV surgeon consult for revascularization. Procedure Description The patient was brought to the diagnostic cardiac catheterization-EP laboratory in the fasting, non-sedated state. Informed consent was obtained in the written and verbal form after the risks and benefits were explained. The patient had no further questions and agreed to proceed. The planned puncture-incision site(s) were shaved and prepped with ChloraPrep and draped in the usual sterile manner. Conscious sedation, supplemental oxygen, and pain control medications were delivered by a registered nurse under physician guidance. Surface ECG rhythm, blood pressure measurement, and pulse oximetry were monitored throughout the procedure. Arterial access. The access site was infiltrated with lidocaine. The vessel was entered with the Seldinger technique. A sheath was advanced into the vessel and used for catheter placement. Selective left coronary angiography. A catheter was advanced into the left coronary vessel ostium under Fluoroscopic guidance. Contrast was injected by hand. Images were obtained in multiple projections. Selective right coronary angiography. A catheter was advanced into the right coronary vessel ostium under fluoroscopic guidance. Contrast was injected by hand. Images were obtained in multiple projections. Left heart catheterization. A catheter was advanced across the aortic valve to the left ventricle under fluoroscopic guidance. Resting hemodynamics were obtained. Non Selective Bilateral Iliac Angiography: Under fluoroscopic guidance a catheter was placed in the distal aorta. Contrast was injected and images were obtained. Selective right Lower Extremity Angiography: Under fluoroscopic guidance a catheter was placed. Contrast was injected and images were obtained. Arterial artery hemostasis was achieved. The patient was transferred to a regular nursing floor via cart accompanied by a nurse. The patient left the laboratory in stable condition. Diagnostic Cath Status: Urgent Procedure Procedure Type Diagnostic procedure:Angiography:, Coronary Angios w/[facility] Peripheral Cath Diagnostic Procedure:Iliac Angio:, Bilateral, Lower Extremity Angio:, Right The procedure was explained in detail to the patient. Risks, complications and alternative treatments were reviewed. Written consent was obtained. Medications Reviewed with Patient prior to Procedure. Angiographic Findings Dominance: Right Cardiac Arteries and Lesion Findings LMCA: Normal (0% Stenosis). LAD: Abnormal.mid 40% followed by mid 60% tandem lesions Lesion on Mid LAD: Mid subsection.40% stenosis . Lesion on Mid LAD: Mid subsection.60% stenosis . LCx: Abnormal.OM 10% Lesion on 1st Ob Radha: Ostial.10% stenosis . RCA: Abnormal.Mid 30% RCA CARBON CUTTER with collaterals from lad filling distal rca Lesion on Mid RCA: Mid subsection.30% stenosis . Lesion on Dist RCA: Mid subsection.100% stenosis .Chronic total occlusion. Ramus: Abnormal.ostial 30% Lesion on Ramus: Ostial.30% stenosis . Cardiac Collaterals - Goodcollateral flow from the Dist LAD to the Dist RCA. Coronary Tree Procedure Data Procedure Date Date: 09/21/2016Start: 12:46 PMEnd: 01:26 PM Entry Locations - Retrograde Percutaneous access was performed through the Right Radial artery (Primary location). A 6 Fr sheath was inserted. Hemostasis was successfully obtained using Mechanical Compression. Closure Comments: r band with 15 cc air deployed by seble. Procedure Medications Order and Administration + + + +------+ !Time !Medication !Dosage !Route ! + + + +------+ !09/21/2016 12:44 PM !Fentanyl !50 mcg !I.V. ! + + + +------+ !09/21/2016 12:47 PM !Fentanyl !50 mcg !I.V. ! + + + +------+ !09/21/2016 12:49 PM !Radial Verapamil !2.5 mg !I.A. ! + + + +------+ !09/21/2016 12:49 PM !Nitroglycerin !200 mcg !I.A. ! + + + +------+ !09/21/2016 12:51 PM !Heparin (ACC_3) !5000 units !I.V. ! + + + +------+ Devices Used - A5 Fr. BS JR 4 Diag. Catheterwas used for:Right coronary angiography. - A5 Fr. BS JL 3.5 Diag. Catheterwas used for:Left coronary angiography. - A6 Fr. BS Angled Pigtail Diag. Catheterwas used for:Abdominal angiogram. - A5 Fr. BS MPA2 125cm Diag. catheterwas used for:Abdominal angiogram. Contrast Material - Isovue 391008 ml Fluoroscopy Time: Diagnostic: 8:54 minutes. Total: 8:54 minutes. Fluoroscopy Dose: Diagnostic: 1641 mGy. Total: 1641 mGy. Estimated Blood Loss: 10 ml. Medical History Allergies - No known allergies. Risk Factors The patient risk factors include:peripheral arterial disease, physical activity, hypercholesterolemia, hypertension, insulin-treated diabetes mellitus, last creatinine: 0.9 mg/dl, creatinine clearance: 179.28 ml/min, dyslipidemia and Current/Recent(w/in 1 year) tobacco use. Admission Data Admission Date: 09/20/2016 Admission Time: 03:27 PM Admit Source: [place] acute care facility Insurance Payors: Private health insurance. Admission Medications + +------+------+ + + + + !Medication !Dosage!Times !Last !Last !Administered !Comments ! ! ! !Per !Delivery !Delivery ! ! ! ! ! !Day !Date !Time ! ! ! + +------+------+ + + + + !Aspirin ! ! ! ! ! ! ! !(any) ! ! ! ! ! ! ! + +------+------+ + + + + !Clopidogrel ! ! ! ! ! ! ! + +------+------+ + + + + !JOVITA ! ! ! ! ! ! ! !Inhibitor ! ! ! ! ! ! ! !(any) ! ! ! ! ! ! ! + +------+------+ + + + + !Statin (any)! ! ! ! ! ! ! + +------+------+ + + + + Clinical Evaluation Leading to Procedure - The patient's CAD presentation was assessed as: Unstable angina. - The patient's anginal syndrome during the past two weeks was assessed as: Class III according to the [place] Cardi[employer] Classification System (CCS). Anti-anginal medications were prescribed during the past two weeks. The medication is: Other. - The reason for the patient's laboratory tester visit is pre-operative evaluation before non-cardiac surgery. [facility] Ventriculography Findings mild LVH LV function assessed as:Abnormal. Ejection Fraction - 09/20/2016 - Method: Echocardiography. EF%: 60. Hemodynamics Condition: Rest O2 Consumption: Estimated: 322.04Heart Rate: 79 bpm Pressures (mmHg) +-----+ + !Site !Pressure ! +-----+ + !LV !111/-12 ,-9 ! +-----+ + !LV !114/-12 ,-10 ! +-----+ + !LV !137/12 ,12 ! +-----+ + !LV !140/12 ,14 ! +-----+ + !AO !128/76 (98) ! +-----+ + !LV !133/13 ,13 ! +-----+ + !AO !128/77 (99) ! +-----+ + Valve Gradients and Areas + +---------+---------+---------+ +---------+ + !Valve !Peak !Mean !Area !Index !Flow !Source ! + +---------+---------+---------+ +---------+ + !Aortic !4 !4 ! ! ! ! ! + +---------+---------+---------+ +---------+ + !Aortic !4 !4 ! ! ! ! ! + +---------+---------+---------+ +---------+ + Shunts Oxygen Values O2 Capacity 213.52 O2 Consumption 322.04 Signatures dtt: JOANNE GALAN dtd: 09/21/16 1246 Physician Self Edit
[~2016-09-20 15:27] MED LIST changes: -ALIGN4 MG; -DOXYCYCLINE100 MG PO; -LEVAQUIN500 MG PO
[2016-09-20 16:17] LABS: BASOPHIL # 0.1 K/uL (0.0-0.2); BASOPHIL % 0.6 %; EOSINOPHIL # 0.2 K/uL (0.0-0.5); EOSINOPHIL % 1.5 %; HEMATOCRIT 48.1 % (37.0-53.0); HEMOGLOBIN 16.7 g/dL (12.0-17.0); IMMATURE GRANULOCYTE % 0.3 %; LYMPHOCYTE # 2.4 K/uL (0.8-4.0); LYMPHOCYTE % 20.2 %; MCH 31.5 pg (27.0-34.0); MCHC 34.7 gm/dL (32.0-36.5); MCV 90.8 fl (83.0-98.0); MONOCYTE # 0.8 K/uL (0.0-1.0); MPV 10.2 fl (9.4-12.4); NEUTROPHIL # (ANC) 8.4 K/uL (1.4-9.0); NEUTROPHIL % 70.4 %; NRBC % 0 /100WBC (0-0.00); PLATELET COUNT 287 K/uL (150-450); RDW-CV 12.7 % (11.9-14.6); WBC 11.9 K/uL (4.0-11.0)
[2016-09-20 16:34] LABS: ALBUMIN 3.6 gm/dL (3.5-5.0); ALK PHOS 53 IU/L (33-138); ALT 25 IU/L (12-78); ANION GAP 11.3 (10.0-19.0); AST 17 IU/L (10-40); BLOOD UREA NITROGEN 17 mg/dL (6-24); CALCIUM 9.3 mg/dL (8.5-10.5); CHLORIDE 106 mMol/L (96-110); CO2 26 mMol/L (22-32); ESTIMATED GFR (MDRD EQUATION) > 60; POTASSIUM 4.3 mMol/L (3.7-5.1); SODIUM 139 mMol/L (135-145); TOTAL BILIRUBIN 0.5 mg/dL (0.0-1.5); TOTAL PROTEIN 7.2 g/dL (6.0-8.4)
[2016-09-20 17:56] LABS: INR - (THERAPEUTIC) 1.02 (0.92-1.07); PROTIME 10.7 SECONDS (9.8-11.4)
[2016-09-20 18:06] LABS: CPK 172 IU/L (35-332)
--- NOTE | 2016-09-20 18:52 | NUR ---
Significant Event: VSS ON RA. DRY DRESSING GAUZE ORDER FOR DAILY CHANGES WITH NEW GAUZE AND GAUZE WRAP APPLIED TO RIGHT OUTER FOOT INCISION SITE, SUTURES IN PLACE FROM PROCEDURE 3 WEEKS AGO. PIV TO L) POST FA SL'D. NPO AFTER MN FOR AORTAGRAM WITH RUNOFF VIA RIGHT ARM TO BILATERAL LOWER EXTREMITIES. DR BARKSDALE CONSULT FOR MED MANAGEMENT. CHEST XRAY AND EKG NOW PENDING WITH DR BARKSDALE CURRENTLY LOOKING AT RESULTS. LABS DRAWN. PAIN TOLERABLE TO RIGHT FOOT WITH REQUEST FOR PAIN MEDICATION THIS EVENING. PERMITS TO BE SIGNED ON CHART. VOIDS PER URINAL. LAST BM 09/19. ID CONSULT FOR TOMORROW. Follow up: VEIN MAPPING TO BE DONE. NPO AFTER MN FOR AORTAGRAM TOMORROW PER DR WRIGHT.
--- NOTE | 2016-09-20 20:01 | NUR ---
56 Y/O MALE ADMITTED FOR OSTEOMYELITIS AND SEVERE PERIPHERAL VASCULAR DISEASE. PT HAD SURGERY ON 08/31/16 FOR DEBRIDEMENT OF A RT FOOT ULCER, PT STATES HE HAS BEEN ON ANTIBIOTICS SINCE THE OPERATION BUT THE FOOT CONTINUES TO NOT HEAL WELL. [facility] MEDICAL & SURGICAL HISTORY - BILAT SHOULDER SURGERY, APPY, RT FOOT SURGERY & REMOVAL OF BASAL CELL CA FROM RT EAR 12 YRS AGO. BILAT NUMBNESS & TINGLING IN BOTH LEGS X 1 YEAR, SEASONAL ALLERGIES, SEVERE PERIPHEROVASCULAR DISEASE, HYPERTENSION, HIGH CHOLESTEROL, DMII, SMOKER-PT STATES HE QUIT JUST THIS LAST MONDAY. PT STATES HE HAS LOST 40 LBS SINCE THE BEGINNING OF THE YEAR. REPORT GIVEN TO DON WAY ADM EDUCATION COMPLETE
[2016-09-21 05:51] LABS: BASOPHIL # 0.1 K/uL (0.0-0.2); BASOPHIL % 0.7 %; EOSINOPHIL # 0.3 K/uL (0.0-0.5); EOSINOPHIL % 2.6 %; HEMATOCRIT 47.2 % (37.0-53.0); HEMOGLOBIN 15.7 g/dL (12.0-17.0); IMMATURE GRANULOCYTE % 0.4 %; LYMPHOCYTE # 2.8 K/uL (0.8-4.0); LYMPHOCYTE % 27.3 %; MCH 30.1 pg (27.0-34.0); MCHC 33.3 gm/dL (32.0-36.5); MCV 90.4 fl (83.0-98.0); MONOCYTE # 0.8 K/uL (0.0-1.0); MONOCYTE % 7.4 %; NEUTROPHIL # (ANC) 6.2 K/uL (1.4-9.0); NEUTROPHIL % 61.6 %; NRBC % 0 /100WBC (0-0.00); PLATELET COUNT 250 K/uL (150-450); RBC 5.22 M/uL (4.00-6.00); RDW-CV 12.6 % (11.9-14.6); WBC 10.1 K/uL (4.0-11.0)
--- NOTE | 2016-09-21 05:58 | NUR ---
Significant Event: Patient alert and oriented x3. Vital signs stable. On RA. 1 tab [place] given x2 for right foot pain with relief. Dressing to right foot changed with third assessment. Dressing C/D/I. No drainage. Patient up with stand-by assist. Refused crutches when ampulated this shift. Blood sugars 125 and 116. No coverage needed. NPO since midnight. Patient calm and cooperative with all cares. Follow up: Echo, Stress Test, Vein Mapping, Chest XRAY, EKG today. ID to see today. Possible heart cath or aortogram today.
[2016-09-21 06:03] LABS: ANION GAP 12.3 (10.0-19.0); BLOOD UREA NITROGEN 14 mg/dL (6-24); CALCIUM 8.5 mg/dL (8.5-10.5); CHLORIDE 108 mMol/L (96-110); CO2 24 mMol/L (22-32); CREATININE 0.9 mg/dL (0.6-1.3); ESTIMATED GFR (MDRD EQUATION) > 60; POTASSIUM 4.3 mMol/L (3.7-5.1); SODIUM 140 mMol/L (135-145)
--- NOTE | 2016-09-21 13:52 | NUR ---
1000 Stopped by to see Cristiano but per his RN, he was out of the room and most likely will be for a good majority of the morning. I will stop by later and see if I can visit with him then. From reviewing his chart, it appears that he lives in [place], [place] alone. Will assess with nursing, doctors, therapies and patient on what discharge plans will need to be. CM to continue to follow and assist.
--- NOTE | 2016-09-21 16:55 | NUR ---
Significant Event: VSS AND RA. STRESS TEST AND HEART CATH DONE. RT)RADIAL SITE, LOOSENING R-BAND. SITE REMAINS SOFT AND C/D/I. RCA WITH BLOCKAGE, BUT GOOD COLLATERAL FLOW. RT)LEG WITH BLOCKAGES AND TO BE NPO P MN FOR RT) COMMON AND FEMORAL ENDARTERECTOMY TMRW WITH DR. WRIGHT. Follow up: CONTINUE PLAN OF CARE.
--- NOTE | 2016-09-22 05:38 | NUR ---
Significant Event: Patient alert and oriented x3. Vital signs stable. On RA. Right radial site with band-aid and coban. Dressing C/D/I. Accuchecks 102 and 106. No coverage needed. NPO since midnight. Up with stand-by assist in room. [place] 1 tab and 650mg Tylenol given x1 for complaints of right foot pain. Patient calm and cooperative with all cares. Follow up: Rt. Common Endarterectomy this morning with Dr. Johnson
--- NOTE | 2016-09-22 11:45 | NUR ---
D:Patient had already left surgery when I arrived this am at 0600.
--- NOTE | 2016-09-22 12:12 | NUR ---
1120 Came by to visit with Cristiano but he was down in surgery per SEAMUS Arroyo. Will try to see again later today or tomorrow. CM to continue to follow and assist.
[2016-09-22 14:50] LABS: BASOPHIL # 0.1 K/uL (0.0-0.2); BASOPHIL % 0.3 %; EOSINOPHIL % 0.2 %; HEMOGLOBIN 15.1 g/dL (12.0-17.0); IMMATURE GRANULOCYTE # 0.1 K/uL (0.0-0.3); IMMATURE GRANULOCYTE % 0.5 %; LYMPHOCYTE % 5.8 %; MCH 31.5 pg (27.0-34.0); MCHC 34.3 gm/dL (32.0-36.5); MCV 91.9 fl (83.0-98.0); MONOCYTE # 0.7 K/uL (0.0-1.0); MONOCYTE % 4.1 %; MPV 10.3 fl (9.4-12.4); NEUTROPHIL # (ANC) 15.1 K/uL (1.4-9.0); NEUTROPHIL % 89.1 %; NRBC % 0 /100WBC (0-0.00); PLATELET COUNT 243 K/uL (150-450); RBC 4.79 M/uL (4.00-6.00); RDW-CV 12.7 % (11.9-14.6)
[2016-09-22 15:05] LABS: BLOOD UREA NITROGEN 14 mg/dL (6-24); CALCIUM 7.8 mg/dL (8.5-10.5); CHLORIDE 108 mMol/L (96-110); CO2 23 mMol/L (22-32); CREATININE 1.1 mg/dL (0.6-1.3); ESTIMATED GFR (MDRD EQUATION) > 60; SODIUM 138 mMol/L (135-145)
--- NOTE | 2016-09-22 17:04 | NUR ---
Significant Event:Patient came to room with wound vac to right groin. Able to doppler pulses on right foot. NS infusing at 100 ml/hr for 24 hours. K+-5.0. Hgb-15.1. Is on 2L O2. Has connors catheter. Has taken water and pudding without difficulty. Bedrest X24 hours. Follow up:
[2016-09-23 05:16] LABS: BASOPHIL # 0.1 K/uL (0.0-0.2); BASOPHIL % 0.4 %; EOSINOPHIL # 0.1 K/uL (0.0-0.5); EOSINOPHIL % 0.5 %; HEMATOCRIT 40.7 % (37.0-53.0); HEMOGLOBIN 14.1 g/dL (12.0-17.0); IMMATURE GRANULOCYTE # 0.1 K/uL (0.0-0.3); IMMATURE GRANULOCYTE % 0.4 %; LYMPHOCYTE % 12.1 %; MCH 31.8 pg (27.0-34.0); MCHC 34.6 gm/dL (32.0-36.5); MCV 91.7 fl (83.0-98.0); MONOCYTE # 1.3 K/uL (0.0-1.0); MPV 10.4 fl (9.4-12.4); NEUTROPHIL # (ANC) 12.9 K/uL (1.4-9.0); NEUTROPHIL % 78.6 %; NRBC % 0 /100WBC (0-0.00); PLATELET COUNT 223 K/uL (150-450); RBC 4.44 M/uL (4.00-6.00); RDW-CV 12.7 % (11.9-14.6)
[2016-09-23 05:17] LABS: WBC 16.5 K/uL (4.0-11.0)
--- NOTE | 2016-09-23 05:19 | NUR ---
Patient is alert and oriented x4. Lung sounds are clear and diminished. On 2l of O2. 24 hour bedrest until 1300 09/23. [place] catheter with 1650ml output. [place] last given at 0300. VSS. Regular diet. IV Rt forearm NS @ 100mls/hr for 24hrs off at 1300. IV rt hand saline locked. Wound vac in rt groin. Accu-checks Q6H. Dressing to Rt foot from old I/D. Dopper pulses to bilateral feet.
--- NOTE | 2016-09-23 11:16 | NUR ---
A - NUTRITION FOLLOW-UP. S/P RIGHT COMMON FEMORAL ENDARTERECTOMY 09/22, WOUND VAC PLACED. VISITED PT THIS AM. PT REPORTED NO APPETITE DUE TO BEING DEPRESSED AFTER A CONVERSATION THIS AM, TEARY. LABS: GLU 162 NEW MEDS: MILD SSI DIET: REGULAR W/ XUAN BID. APPETITE WAS GOOD BEFORE SURGERY. INTAKE 26-49% X1 MEALS AFTER SURGERY. DID NOT TAKE BREAKFAST THIS AM. YET TO TRY XUAN. ENCOURAGEMENT GIVEN. EST NEEDS: [id number] KCAL, 137 GRAMS PROTEIN, FLUID NEEDS: 1ML/KCAL D - INADEQUATE ORAL INTAKE RELATED TO DECREASED APPETITE SECONDARY TO DEPRESSION PER PT EVIDENCED BY PO 48% X7 MEALS. I - WILL D/C XUAN. PT AGREED TO TRY ENSURE ENLIVE BID. M/E - GOAL: PT WILL BE ABLE TO TOLERATE >50% OF MEALS AND AT LEAST ONE ORAL SUPPLEMENT PER DAY IN 4-6 DAYS.
--- NOTE | 2016-09-23 12:47 | NUR ---
Introduced self and CM role to Cristiano this morning. He was sitting up in his bed reading the newspaper when I got to his room. Cristiano tells me that he lives in [place], alone, and plans to return there when he is able to do so. He says that his sister, Juli, is coming to stay with him for an unknown amount of time once he is out of the hospital to help him out when he gets to go home. We talked about him having to possibly have to go home with a wound vac on, he was fine with this, states that he could do outpatient appointments at the [facility] if he needed to. He would also be open to [facility] as well if he should need IV Abxs in addition to his wound vac managements. At this time, I am not for sure if he will go home with IV Abxs and in reviewing the charting I can't tell what [facility] Let Cristiano know that I would continue to follow along and check back in with him on Monday and then by then we might have a more clear picture of what his dismissal needs might be. He tells me at home he was getting around most times without the use of any DME, but recently he had to start using crutches to help him around the house because of a sore on his foot. He has crutches here with him in his room that are his personal ones. He denies the need for any additional DME at this time. Praveen PCP is and he gets his medications filled at [facility] in [place]. He states he will continue to manage his own medications at home and continue to follow up with when dismissed from [facility]. He denies any other questions, needs or concerns. CM to continue to follow and assist. Plan home.
--- NOTE | 2016-09-23 19:02 | NUR ---
Significant Event: ALERT & ORIENTED. VSS,AFEBRILE, ROOM AIR. AMBULATES WITH CRUTCHES. HOANG REMOVED, VOIDING WITHOUT DIFFICULTY. WOUND VAC TO R) GROIN. GAUZE & TEGADERM TO R) FOOT, DRESSING CHANGE DAILY AND CLEANSE WITH BETADINE. DOPPLER PEDAL PULSES. ACCUCHEK ACHS Follow up: ROMMEL NOT YET DONE? ORDER ENTERED
[2016-09-24 04:32] LABS: BASOPHIL # 0.1 K/uL (0.0-0.2); BASOPHIL % 0.5 %; EOSINOPHIL # 0.2 K/uL (0.0-0.5); EOSINOPHIL % 1.2 %; HEMATOCRIT 38.9 % (37.0-53.0); HEMOGLOBIN 13.3 g/dL (12.0-17.0); IMMATURE GRANULOCYTE # 0.1 K/uL (0.0-0.3); IMMATURE GRANULOCYTE % 0.4 %; LYMPHOCYTE # 2.3 K/uL (0.8-4.0); LYMPHOCYTE % 17.6 %; MCH 31.3 pg (27.0-34.0); MCHC 34.2 gm/dL (32.0-36.5); MCV 91.5 fl (83.0-98.0); MONOCYTE # 1.1 K/uL (0.0-1.0); MONOCYTE % 8.3 %; MPV 10.6 fl (9.4-12.4); NEUTROPHIL # (ANC) 9.3 K/uL (1.4-9.0); NRBC % 0 /100WBC (0-0.00); PLATELET COUNT 222 K/uL (150-450); RBC 4.25 M/uL (4.00-6.00); RDW-CV 12.8 % (11.9-14.6)
[2016-09-24 04:51] LABS: ALBUMIN 2.9 gm/dL (3.5-5.0); ALK PHOS 45 IU/L (33-138); ALT 20 IU/L (12-78); ANION GAP 11.2 (10.0-19.0); AST 24 IU/L (10-40); BLOOD UREA NITROGEN 12 mg/dL (6-24); CALCIUM 7.9 mg/dL (8.5-10.5); CHLORIDE 108 mMol/L (96-110); CO2 25 mMol/L (22-32); CREATININE 0.8 mg/dL (0.6-1.3); ESTIMATED GFR (MDRD EQUATION) > 60; POTASSIUM 4.2 mMol/L (3.7-5.1); SODIUM 140 mMol/L (135-145); TOTAL BILIRUBIN 0.5 mg/dL (0.0-1.5); TOTAL PROTEIN 5.9 g/dL (6.0-8.4)
--- NOTE | 2016-09-24 05:22 | NUR ---
Significant event: A/O x 3. Up in room with SBA and cruthches. dressing to right foot is C/D/I. Dopple pulses to bilat feet. VSS. [place] x 2 given last at 0320 with releif noted each time.
--- NOTE | 2016-09-24 18:41 | NUR ---
Significant Event: ALERT & ORIENTED. VSS, AFEBRILE, ROOM AIR. UP AD GLENN WITH CRUTCHES. DOPPLER PEDAL/TIBILA PULSES. BETADINE SWABS TO R) FOOT WOUND DAILY, GAUZE & TEGADERM DRESSING CHANGE DAILY & PRN. ACCUCHEK ACHS Follow up: DONNA SUN OR MON?
[2016-09-25 03:39] LABS: BASOPHIL # 0.1 K/uL (0.0-0.2); BASOPHIL % 0.5 %; EOSINOPHIL # 0.2 K/uL (0.0-0.5); EOSINOPHIL % 1.7 %; HEMATOCRIT 37.9 % (37.0-53.0); HEMOGLOBIN 13.3 g/dL (12.0-17.0); IMMATURE GRANULOCYTE # 0.1 K/uL (0.0-0.3); IMMATURE GRANULOCYTE % 0.5 %; LYMPHOCYTE # 2.2 K/uL (0.8-4.0); LYMPHOCYTE % 16.6 %; MCHC 35.1 gm/dL (32.0-36.5); MCV 91.1 fl (83.0-98.0); MONOCYTE # 1.1 K/uL (0.0-1.0); MONOCYTE % 8.5 %; MPV 10.6 fl (9.4-12.4); NEUTROPHIL # (ANC) 9.5 K/uL (1.4-9.0); NEUTROPHIL % 72.2 %; NRBC % 0 /100WBC (0-0.00); PLATELET COUNT 229 K/uL (150-450); RBC 4.16 M/uL (4.00-6.00); RDW-CV 12.7 % (11.9-14.6); WBC 13.2 K/uL (4.0-11.0)
--- NOTE | 2016-09-25 05:28 | NUR ---
Significant Event: NOR[place] GIVEN X2 FOR FOOT/GROIN PAIN. SLEEPING WELL. UP WITH STANDBY ASSIST. REMAINS ON ROOM AIR. WOUND VAC CONTINUES ORDERED. Follow up:
--- NOTE | 2016-09-25 16:22 | NUR ---
Significant Event: A/O. VSS on RA. [place] given x1 this am. Up in room ad jignesh. Colace, miralax and docusate given, no results yet. Plan for dismissal tomorrow after WOC does paperwork for wound vac. Diabetes book and assessment form provided to patient today. Follow up: dismiss tomorrow
[2016-09-26 04:18] LABS: BASOPHIL # 0.1 K/uL (0.0-0.2); BASOPHIL % 0.5 %; EOSINOPHIL # 0.3 K/uL (0.0-0.5); EOSINOPHIL % 1.8 %; HEMATOCRIT 37.9 % (37.0-53.0); IMMATURE GRANULOCYTE # 0.1 K/uL (0.0-0.3); IMMATURE GRANULOCYTE % 0.5 %; LYMPHOCYTE # 2.2 K/uL (0.8-4.0); LYMPHOCYTE % 16.3 %; MCH 31.3 pg (27.0-34.0); MCHC 34.3 gm/dL (32.0-36.5); MCV 91.1 fl (83.0-98.0); MONOCYTE # 1.2 K/uL (0.0-1.0); MONOCYTE % 9.1 %; MPV 10.7 fl (9.4-12.4); NEUTROPHIL # (ANC) 9.8 K/uL (1.4-9.0); NEUTROPHIL % 71.8 %; NRBC % 0 /100WBC (0-0.00); PLATELET COUNT 247 K/uL (150-450); RBC 4.16 M/uL (4.00-6.00); RDW-CV 12.7 % (11.9-14.6); WBC 13.7 K/uL (4.0-11.0)
--- NOTE | 2016-09-26 05:16 | NUR ---
Significant Event: UP AD GLENN TO BR. NO PAIN MEDS GIVEN. STATED HE HAD A BM THIS SHIFT. REMAINS ON ROOM AIR. WOUND VAC INTACT WITH NO DRAINAGE OUTPUT. SLEEPING WELL. Follow up:
--- NOTE | 2016-09-26 12:24 | NUR ---
Diabetes center note: 0930 and [id number] Spent time with patient completing the Diabetes survival Skills checklist, patient has been recently diagnosed with type 2 diabetes, on Janumet at home. Patient lacks knowledge in many areas, education provided as guided by the checklist, a copy is placed on the chart. Request for dietary education consult placed, patient is interested in out patient on-going education for meal planning also. Patient did not have a meter at home, a One Touch Verio meter is provided and CDE demonstrates use of meter, instructed to test blood sugars 3-4 times per day and record in log book, target ranges discussed. Patient is motivated at this time, and is interested in on-going out patient diabetes education. Provided phone numbers for Diabetes Center RN and RD. Will plan to obtain MD order from Dr. Harris in [place]. Patient states he has not seen Dr. Harris yet, but is planning follow up with him in [place]. Scripts written for meter supplies, patient asks appropriate questions. Stressed importance of proper control of blood sugar to reduce risks of complications related to diabetes, heart, eyes, kidneys, nerves and foot care details provided. Has written Diabetes management booklet A1C was 6.8 % on 09/20/16
--- NOTE | 2016-09-26 13:10 | NUR ---
PT SEEN [facility] FOR DIABETIC DIET ED. EDUCATED PT ON BASIC PRINCIPLES AND CALLED MD FOR ORDER TO SEE OUTPATIENT RD FOR CONTINUED DB ED. PHONE # GIVEN, ENCOURAGED TO CALL W/ QUESTIONS.
--- NOTE | 2016-09-26 13:20 | NUR ---
1040 Stopped by and talked with RN Ja, she tells me that they are waiting for to round on Cristiano so he can dismiss to home. He has family in the room and his plan is home. There are no CM needs at this time. [facility] RNs are on board and following him for his wound vac needs at this time. Plan home.
--- NOTE | 2016-09-26 14:30 | NUR ---
D/C ORDERS TO HOME RECIEVED. REVIEWED WITH THE PATIENT AND A FRIEND ALL D/C INFORMATION INCLUDING MEDICATIONS, FOLLOW-UP APPTS (ALL SCHEDULED FOR HIM), INSTRUCTIONS, AND CARES. EBENEZER EDUCATION PRINTOUTS GIVEN ON DIABETES INFORMATION, FEMORAL ENDARTERECTOMY D/C INSTRUCTIONS, AND WOUND VAC INFO. PIV'S D/C'D AND CATHETERS INTACT. [employer] PRINCIPAL WAS UP TO SEE PATIENT AND TEACHING INFO AND BOOKLET WAS REVIEWED WITH HER AND REINFORCED. PT VERBALIZED ALL D/C INSTRUCTIONS AND ORDERS. TAKEN VIA W/C AND TRANSPORT TEAM TO THE FRONT ENTRANCE OF THE HOSPITAL AND FRIEND TO DRIVE HIM HOME.
== END 2016-09-26 14:30 | disposition disaster alternative care site (69) | DRG 253 ==
LOC: GPCU 15:27
PROVIDERS: Internal Medicine; Nurse Practitioner Family; ADMIT Surgery Vascular Surgery
DX: I70.235 Atherosclerosis of native arteries of right leg with ulceration of other part of foot (principal); M86.9 Osteomyelitis, unspecified; E11.621 Type 2 diabetes mellitus with foot ulcer; E78.5 Hyperlipidemia, unspecified; I10 Essential (primary) hypertension; Z72.0 Tobacco use; E66.9 Obesity, unspecified; L97.519 Non-pressure chronic ulcer of other part of right foot with unspecified severity; Z68.37 Body mass index [BMI] 37.0-37.9, adult
CPT/HCPCS: A9500; C1769; C1887; G0009; G0278; J0690; J1100; J1644; J2001; J2250; J2405; J2720; J2785; J3010; J3480; J7030; J7042; J7050; P9045

== ENCOUNTER → 2016-10-05 | Outpatient (CLI) | payer OTHER ==
[~2016-10-05] MED LIST changes: +ALIGN4 MG; +DOXYCYCLINE100 MG PO; +LEVAQUIN500 MG PO
== END | disposition disaster alternative care site (69) ==
LOC: GDIC 09:10
DX: E11.8 Type 2 diabetes mellitus with unspecified complications (principal)
CPT/HCPCS: G0108

== ENCOUNTER → 2016-10-10 | Outpatient (CLI) | payer OTHER | END | disposition disaster alternative care site (69) | LOC: GNUT 13:41 | DX: I73.9 Peripheral vascular disease, unspecified (principal); I99.8 Other disorder of circulatory system; I10 Essential (primary) hypertension; M86.9 Osteomyelitis, unspecified; E11.9 Type 2 diabetes mellitus without complications ==

== ENCOUNTER 2016-10-18 08:00 | Inpatient (IN) | payer OTHER ==
[~2016-10-18] VITALS: Ht 193 cm; Wt 132.0 kg
--- NOTE | ~2016-10-18 | DS ---
PATIENT'S NAME: LIONEL SIMMONS [facility] AGE: 56 Y [address] ROOM: [id number] [place], [place] [address] LOCATION: GPCU ADMIT DATE: 10/19/2016 Discharge Summary DISCHARGE DATE: 10/25/2016 FAMILY PHYSICIAN: Chritsian Harris MD ATTENDING PHYSICIAN: Aj Johnson FINAL DIAGNOSIS: Right groin seroma infection. SECONDARY DIAGNOSES: 1. Peripheral vascular disease, status post right common femoral artery endarterectomy. 2. Diabetes mellitus type 2. 3. Essential hypertension. PROCEDURES: Incision and drainage of right groin seroma by Dr. Johnson. CONSULTATIONS: Hospitalist for medication management. HOSPITAL COURSE: This is a 56-year-old, male, admitted to [facility] on 10/19/2016 after incision and drainage of right groin seroma infection. The patient had presented to [facility] for clinic on 10/17/2016 with a large seroma to right groin draining clear fluid. At that time, he was started on p.o. Levaquin and scheduled for surgery. The patient has a history of nonhealing ulcer to his right foot and severe peripheral vascular disease. He is status post right common femoral artery endarterectomy. See history and physical for full patient details. During the procedure, the seroma cavity was evacuated with murky fluid. No barbie pus but the seroma did appear infective in nature. Cultures were obtained during surgery. The patient tolerated the procedure well and after recovery was admitted to the progressive care unit for monitoring on telemetry, vitals, labs, surgical site, pain management, medication administration, and nursing assistance. Hospitalists were consulted for medication management. The patient was allowed up ad jignesh. His diet was advanced as tolerated and clindamycin 900 mg IV was continued postsurgically. The patient was started on sliding scale insulin. On postop day #1, the patient's wound was found to be clean and Wound Care was consulted for wound VAC placement. Wound cultures with many gram-positive cocci and heavy growth Staph aureus. Vancomycin was initiated per pharmacy dosing. On postop day 2, wound cultures with methicillin-sensitive Staphylococcus aureus. Vancomycin was discontinued and nafcillin IV was started. His infection was found to be resistant to clindamycin. On postop day 3-4, the patient had very minimal change in status and waiting on home VAC approval and IV antibiotics continued. On postop day 5, the patient was to be discharged home on a home VAC; however, he had an increase in white blood cell count to 11.7. Subsequently, the patient was kept on his hospital VAC. CRP and sedimentation rate to be drawn as well as PATIENT'S NAME: LIONEL SIMMONS [facility] AGE: 56 Y [address] ROOM: [address] [place] [id number] LOCATION: GPCU ADMIT DATE: 10/19/2016 Discharge Summary DISCHARGE DATE: 10/25/2016 FAMILY PHYSICIAN: Christian Harris MD ATTENDING PHYSICIAN: Aj Johnson CBC in the a.m. Wound appeared clean on VAC change without surrounding erythema. No purulent drainage. No odor. On postop day 6, the patient was found to have a decrease in white blood cell count. His home VAC was applied and he was changed to p.o. doxycycline. The patient was found in a stable condition to be discharged home with no fevers, chills, nausea, or vomiting. He was educated about using a probiotic and yogurt daily to prevent antibiotic related diarrhea. LABORATORY DATA: White blood cell count trending 13, 8.6, 6.9, 7.8, 9.3, 11.7, 10.8. ESR 49. CRP 1.7. DISCHARGE ORDERS: The patient is to be discharged home on his previous diet. He is to follow up with his primary care provider in [place] on 10/28/2016 and have a CBC drawn. He is to follow up with wound care at [facility] on 10/27/2016 at 1:00 p.m. to begin his bi-weekly wound VAC changes. Dr. Johnson will follow up with the patient in Wound Care. He is to yogurt daily to prevent antibiotic-induced diarrhea. He is to continue to apply Betadine daily to his right foot wound. The patient routinely follows up with Dr. Jones for foot wound care. He is to report any signs or symptoms of infection including redness, swelling, fevers, chills, or drainage. DISCHARGE MEDICATIONS: 1. Janumet mg p.o. twice daily. 2. Lipitor 80 mg p.o. every night at bedtime. 3. Plavix 75 mg p.o. daily. 4. Benazepril/hydrochlorothiazide 20/12.5, 1 tablet p.o. daily. 5. [place] 5/325, 1 to 2 tabs every 4 hours as needed for pain. 6. Doxycycline 100 mg p.o. twice daily x2 weeks. 7. Align capsule 4 mg. DISPOSITION: The patient is discharged to home in a stable condition. He is to follow discharge orders as prescribed. Education about discharge including incisional care, medications, prescriptions, diet, activity, and followup appointments given to the patient. The patient verbalized understanding of the plan. He had no further questions or concerns. He is to follow discharge orders as prescribed. RUTH SHANEKA RAND FOR AJ JOHNSON MD TO/modl PATIENT'S NAME: LIONEL SIMMONS [facility] AGE: 56 Y [address] ROOM: [place] [address] LOCATION: [facility] ADMIT DATE: 10/19/2016 Discharge Summary DISCHARGE DATE: 10/25/2016 FAMILY PHYSICIAN: Christian Harris MD ATTENDING PHYSICIAN: Aj Johnson /[id number] d: 11/03/16 1508 t: 11/09/16 1007, DISCHARGE SUMMARY
--- NOTE | ~2016-10-18 | OR ---
PATIENT'S NAME: LIONEL SIMMONS [facility] AGE: 56 Y [address] ROOM: [place] [address] [facility] ADMIT DATE: 10/19/2016 OR/Procedure Report DISCHARGE DATE: FAMILY PHYSICIAN: Christian Harris MD ATTENDING PHYSICIAN: AJ JOHNSON SURGEON: Aj Johnson MD CHARGE MASTER COORDINATOR: DATE OF PROCEDURE: 10/19/2016 PREOPERATIVE DIAGNOSIS: Infected right groin seroma. POSTOPERATIVE DIAGNOSIS: Infected right groin seroma. PROCEDURES: Incision and drainage of right groin. AIRWAYS CONTROL SPECIALIST: OR staff. ANESTHESIA: General. ESTIMATED BLOOD LOSS: 10 mL. OPERATIVE FINDINGS: Seroma cavity evacuated with some murky fluid. No barbie pus but did appear infected in nature. DESCRIPTION OF PROCEDURE: The patient was brought to the operating room, placed supine on the operating room table, placed under general anesthesia, prepped and draped in a sterile manner. Preoperative time-out was performed. The patient was receiving preoperative antibiotics in the form of 2 g of Ancef. We made an incision on the inferior aspect of the previously placed groin wound. We opened it up. There was a large cavity of murky fluid from which cultures were taken from. We then evacuated the entire fluid and copiously irrigated the wound with antibiotic solution. We then packed it with Dakin-soaked solution. The patient tolerated the procedure well and transferred to recovery room and up to the floor. MD ROSALINDA SINGLETON/tracyl /[id number] d: 10/19/166 t: 10/21/16 183, OPERATIVE SUMMARY
[~2016-10-18 08:00] MED LIST changes: -ALIGN4 MG; -DOXYCYCLINE100 MG PO; -LEVAQUIN500 MG PO
[2016-10-18] MEDS ORDERED: LEVAQUIN500 MG PO (08:15)
[2016-10-19 08:44] LABS: BASOPHIL % 0.3 %; EOSINOPHIL # 0.2 K/uL (0.0-0.5); EOSINOPHIL % 1.2 %; HEMATOCRIT 40.3 % (37.0-53.0); HEMOGLOBIN 13.8 g/dL (12.0-17.0); IMMATURE GRANULOCYTE # 0.1 K/uL (0.0-0.3); IMMATURE GRANULOCYTE % 0.6 %; LYMPHOCYTE # 1.1 K/uL (0.8-4.0); LYMPHOCYTE % 8.6 %; MCH 31.1 pg (27.0-34.0); MCHC 34.2 gm/dL (32.0-36.5); MCV 90.8 fl (83.0-98.0); MONOCYTE # 0.8 K/uL (0.0-1.0); MONOCYTE % 6.4 %; MPV 10.6 fl (9.4-12.4); NEUTROPHIL # (ANC) 10.8 K/uL (1.4-9.0); NEUTROPHIL % 82.9 %; NRBC % 0 /100WBC (0-0.00); PLATELET COUNT 230 K/uL (150-450); RBC 4.44 M/uL (4.00-6.00); RDW-CV 13.2 % (11.9-14.6)
[2016-10-19 09:02] LABS: ALK PHOS 61 IU/L (33-138); ALT 28 IU/L (12-78); ANION GAP 13.9 (10.0-19.0); AST 16 IU/L (10-40); BLOOD UREA NITROGEN 16 mg/dL (6-24); CALCIUM 8.8 mg/dL (8.5-10.5); CHLORIDE 104 mMol/L (96-110); CO2 24 mMol/L (22-32); CREATININE 0.9 mg/dL (0.6-1.3); POTASSIUM 3.9 mMol/L (3.7-5.1); SODIUM 138 mMol/L (135-145); TOTAL BILIRUBIN 0.5 mg/dL (0.0-1.5); TOTAL PROTEIN 7.3 g/dL (6.0-8.4)
[2016-10-19 14:26] LABS: BLOOD UREA NITROGEN 15 mg/dL (6-24); CALCIUM 8.3 mg/dL (8.5-10.5); CHLORIDE 107 mMol/L (96-110); CO2 26 mMol/L (22-32); CREATININE 0.9 mg/dL (0.6-1.3); SODIUM 139 mMol/L (135-145)
--- NOTE | 2016-10-19 17:55 | NUR ---
Significant Event: SBP 140-150'S. HR 70-80'S. NO C/O PAIN. AFEBRILE. SLEPT MOST OF AFTERNOON. DRESSING TO RIGHT GROIN SATURATED WITH ORDERS TO CHANGE PRN WITH ABD AND TAPE. IVF RUNNING VIA RIGHT WRIST PIV, NS AT 75ML/HR X 12 HOURS. AMBULATES 1PA, ORDERS TO BE UP AD GLENN. CLINDAMYCIN IV Q8HR. DIABETIC DIET WITH ACHS ACCUCHECKS. TOLERATING ORAL INTAKE. Follow up: CONT TO MONITOR PER PLAN OF CARE. DRESSING TO BE CHANGED NEEDED TO RIGHT GROIN.
[2016-10-20 03:55] LABS: BASOPHIL % 0.3 %; EOSINOPHIL # 0.1 K/uL (0.0-0.5); EOSINOPHIL % 0.7 %; HEMATOCRIT 37.1 % (37.0-53.0); HEMOGLOBIN 12.8 g/dL (12.0-17.0); IMMATURE GRANULOCYTE % 0.5 %; LYMPHOCYTE % 11.6 %; MCH 31.1 pg (27.0-34.0); MCHC 34.5 gm/dL (32.0-36.5); MCV 90.3 fl (83.0-98.0); MONOCYTE # 0.8 K/uL (0.0-1.0); MONOCYTE % 9.2 %; MPV 10.5 fl (9.4-12.4); NEUTROPHIL # (ANC) 6.7 K/uL (1.4-9.0); NEUTROPHIL % 77.7 %; NRBC % 0 /100WBC (0-0.00); PLATELET COUNT 223 K/uL (150-450); RBC 4.11 M/uL (4.00-6.00); RDW-CV 13.2 % (11.9-14.6); WBC 8.6 K/uL (4.0-11.0)
[2016-10-20 04:13] LABS: ANION GAP 12.9 (10.0-19.0); BLOOD UREA NITROGEN 11 mg/dL (6-24); CALCIUM 8.2 mg/dL (8.5-10.5); CHLORIDE 103 mMol/L (96-110); CO2 24 mMol/L (22-32); CREATININE 0.7 mg/dL (0.6-1.3); POTASSIUM 3.9 mMol/L (3.7-5.1); SODIUM 136 mMol/L (135-145)
--- NOTE | 2016-10-20 05:03 | NUR ---
Significant events: Pt A/Ox3. VSS. On RA. Up SBA. R) groin site covered with gauze/tegaderm. Dressing changed x3 for saturation and reinforced multiple times. Site tender to touch. Fountain given x2. IV antibiotics. Pt renata wtih cares.
--- NOTE | 2016-10-20 12:15 | NUR ---
Introduced self and role of care management to patient. He lives alone near [place]. Patient hopes to go home tomorrow. He says last time he was here he went home with a wound VAC and daily IV ATBs. He went to the [facility] for the wound VAC and the ATBs. He says they going to send him karli with a wound VAC again. He has some questions regarding the wound vac adhesive and dresssing. Encouraged him to talk to the [facility] nurse when she comes to put the wound VAC on. Told him he is currently on IV ATBs every 8 hours and not sure if that is what he will go home on. He says he can make it work to go to [place] 3 times a day if he has to, but would prefer not to. Says his NEDRA and nephew are here visiting him. Will follow.
--- NOTE | 2016-10-20 17:14 | NUR ---
Significant Event: VSS ON RA. AFEBRILE. 2 TABS NORCO GIVEN LAST AT 1219 FOR PAIN TO RIGHT GROIN. WOC RN PLACED WOUND VAC TO 125MMHG CONTINUOUS. VANCOMYCIN 2 GRAMS IV INITIATED TODAY WITH RX TO DOSE. PIV TO RIGHT WRIST SL'D. UP TO BATHROOM AND CHAIR SBA. VOIDS PER URINAL. HOME-VAC ORDER SHEETS ON CHART AND CM TALKED TO PATIENT ABOUT OUTPT IV INFUSIONS VS SWINGBED. ACHS ACCUCHECKS WITH MILD SSI. Follow up: CONT TO MONITOR PER PLAN OF CARE. PAIN CONTROL.
[2016-10-21 03:59] LABS: BASOPHIL # 0.1 K/uL (0.0-0.2); BASOPHIL % 0.7 %; EOSINOPHIL # 0.2 K/uL (0.0-0.5); EOSINOPHIL % 2.3 %; HEMATOCRIT 38.2 % (37.0-53.0); HEMOGLOBIN 12.8 g/dL (12.0-17.0); IMMATURE GRANULOCYTE % 0.3 %; LYMPHOCYTE # 1.8 K/uL (0.8-4.0); LYMPHOCYTE % 25.9 %; MCH 30.3 pg (27.0-34.0); MCHC 33.5 gm/dL (32.0-36.5); MCV 90.3 fl (83.0-98.0); MONOCYTE # 0.9 K/uL (0.0-1.0); MONOCYTE % 12.8 %; MPV 10.2 fl (9.4-12.4); NRBC % 0 /100WBC (0-0.00); PLATELET COUNT 214 K/uL (150-450); RBC 4.23 M/uL (4.00-6.00); WBC 6.9 K/uL (4.0-11.0)
[2016-10-21 04:21] LABS: ALBUMIN 2.4 gm/dL (3.5-5.0); ANION GAP 10.1 (10.0-19.0); BLOOD UREA NITROGEN 12 mg/dL (6-24); CALCIUM 8.4 mg/dL (8.5-10.5); CHLORIDE 106 mMol/L (96-110); CO2 27 mMol/L (22-32); CREATININE 0.8 mg/dL (0.6-1.3); PHOSPHORUS 3.5 mg/dL (2.5-4.9); POTASSIUM 4.1 mMol/L (3.7-5.1); SODIUM 139 mMol/L (135-145)
--- NOTE | 2016-10-21 04:27 | NUR ---
Significant Event: PATIENT IS ALERT AND ORIENTED. USES CALL LIGHT APPROPRIATELY. USES URINAL AT BEDSIDE. WOUND VAC TO RIGHT GROIN. 150 ML OUT. VANCO STARTED YESTERDAY. WAITING ON SENSITIVITY REPORT. NORCO GIVEN AT 2008. Follow up:
--- NOTE | 2016-10-21 14:13 | NUR ---
Diabetes Center note: Patient has been seen for newly diagnosed type 2 diabetes in our [facility] clinic with RN, GUME and GUME WOMACK. Patient is cheerful, talkative and expresses great concern over current health status and wound, emotional support provided and reinforced some educational topics. Stress of infection, wound and inactivity contributing to elevation of blood sugars, sliding scale Novolog currently being utilized. Provided Diabetes checklist and patient agrees to complete this today, will continue to follow throughout hospital stay.
--- NOTE | 2016-10-21 14:15 | NUR ---
Spoke with patient regarding current frequency of his IV ATBs and if should look at [place]. He says he wants to go home, he says he lives close to the hospital. Told him one of the ATBs is every 4 hours. He says he hopes that isn't what they want to send him home on. He is hoping to go home soon, but does not have a PPIC line and WOC is working on getting home Wound VAC approval. Will follow up with him once we know what ATBS he will be discharging on.
--- NOTE | 2016-10-21 16:20 | NUR ---
Significant Event: VSS ON RA. 2 TABS NORCO GIVEN THIS MORNING AROUND 0800 FOR RIGHT GROIN PAIN 3-07/11 WITH COMPLETE RELIEF NOTED. WOUND-VAC REMAINS INTACT WITH 100ML BLOODY-BROWN DRAINAGE. INDEPENDENT SHOWER TODAY. PIV TO R) WRIST WITH IV NAFCILLIN NOW SCHEDULED Q4HR. IV VANCO AND CLINDAMYCIN DC'D. ACHS ACCUCHECKS. Follow up: POSSIBLE DC TOMORROW IF HOME-VAC ORDERS ADDRESSED ON CHART AND IV ANTIBIOTICS FOR OUTPT SET UP, OR CHANGED TO ORAL FORM.
--- NOTE | 2016-10-22 05:37 | NUR ---
Significant Event:A/Ox3. Afebrile. VSS on RA. Wound-vac to R)groin intact with 100ml of serous drainage. rounded and signed for the home-vac, Zeb with WOC faxed orders and said there is a possibility but more than likely home Monday. IV to R)wrist dc'd d/t being painful to patient, new IV started to R)FA. Follow up:Continue with POC work on getting ATB and WOC set up for home.
[2016-10-22 07:01] LABS: BASOPHIL # 0.1 K/uL (0.0-0.2); BASOPHIL % 0.8 %; EOSINOPHIL # 0.3 K/uL (0.0-0.5); EOSINOPHIL % 3.7 %; HEMATOCRIT 40.6 % (37.0-53.0); IMMATURE GRANULOCYTE % 0.4 %; LYMPHOCYTE # 2.3 K/uL (0.8-4.0); LYMPHOCYTE % 29.3 %; MCH 30.8 pg (27.0-34.0); MCHC 34.5 gm/dL (32.0-36.5); MCV 89.4 fl (83.0-98.0); MONOCYTE # 0.6 K/uL (0.0-1.0); MONOCYTE % 7.3 %; MPV 10.2 fl (9.4-12.4); NEUTROPHIL # (ANC) 4.6 K/uL (1.4-9.0); NEUTROPHIL % 58.5 %; NRBC % 0 /100WBC (0-0.00); RBC 4.54 M/uL (4.00-6.00); RDW-CV 13.2 % (11.9-14.6); WBC 7.8 K/uL (4.0-11.0)
[2016-10-22 07:08] LABS: PLATELET COUNT 258 K/uL (150-450)
--- NOTE | 2016-10-22 19:17 | NUR ---
Significant Event:A/Ox3. VSS on room air. Up SBA. R) groin wound vac intact with 100ml of sanginous drainage out this shift. IV ATB therapy continued. Follow up: Patient will discharge monday after wound vac is changed to home wound vac.
--- NOTE | 2016-10-23 05:01 | NUR ---
Significant Event:A/Ox3. VSS on RA. MSU status, no tele. No c/o pain or need for pain medication. Cooperative with cares. Follow up:Continue with POC. Discharge home Monday.
[2016-10-23 06:54] LABS: BASOPHIL # 0.1 K/uL (0.0-0.2); BASOPHIL % 0.8 %; EOSINOPHIL # 0.3 K/uL (0.0-0.5); EOSINOPHIL % 2.8 %; HEMATOCRIT 41.4 % (37.0-53.0); HEMOGLOBIN 14.3 g/dL (12.0-17.0); IMMATURE GRANULOCYTE # 0.1 K/uL (0.0-0.3); IMMATURE GRANULOCYTE % 0.5 %; LYMPHOCYTE # 2.6 K/uL (0.8-4.0); LYMPHOCYTE % 27.7 %; MCHC 34.5 gm/dL (32.0-36.5); MCV 89.6 fl (83.0-98.0); MONOCYTE # 0.6 K/uL (0.0-1.0); MONOCYTE % 6.8 %; MPV 9.8 fl (9.4-12.4); NEUTROPHIL # (ANC) 5.7 K/uL (1.4-9.0); NEUTROPHIL % 61.4 %; NRBC % 0 /100WBC (0-0.00); PLATELET COUNT 272 K/uL (150-450); RBC 4.62 M/uL (4.00-6.00); RDW-CV 13.2 % (11.9-14.6); WBC 9.3 K/uL (4.0-11.0)
--- NOTE | 2016-10-23 17:00 | NUR ---
Significant Event: Patient alert and oriented. Up ad jignesh in the room. Denies discomfort. Wound vac to his R) groin intact with a total of 100 ml out. Accuchecks were 140, 183, and 117 with no sliding scale insulin needed. Continues on IV antibiotics. Follow up: Dismissal tomorrow with home wound vac.
[2016-10-24 05:50] LABS: BASOPHIL # 0.1 K/uL (0.0-0.2); BASOPHIL % 0.7 %; EOSINOPHIL # 0.3 K/uL (0.0-0.5); EOSINOPHIL % 2.6 %; HEMATOCRIT 40.9 % (37.0-53.0); IMMATURE GRANULOCYTE # 0.1 K/uL (0.0-0.3); IMMATURE GRANULOCYTE % 0.7 %; LYMPHOCYTE % 25.6 %; MCH 30.8 pg (27.0-34.0); MCHC 34.2 gm/dL (32.0-36.5); MCV 89.9 fl (83.0-98.0); MONOCYTE # 0.9 K/uL (0.0-1.0); MONOCYTE % 8.1 %; MPV 9.5 fl (9.4-12.4); NEUTROPHIL # (ANC) 7.3 K/uL (1.4-9.0); NEUTROPHIL % 62.3 %; NRBC % 0 /100WBC (0-0.00); PLATELET COUNT 291 K/uL (150-450); RBC 4.55 M/uL (4.00-6.00); WBC 11.7 K/uL (4.0-11.0)
--- NOTE | 2016-10-24 07:04 | NUR ---
Significant Event:A/Ox3. AFEBRILE. VSS ON RA. NO C/O PAIN. AMBULATES IN ROOM AD GLENN. PIV TO L)FA. NAFICILLIN CONTINUES Q4H. CANISTER TO WOUND-VAC CHANGED MONDAY MORNING AT 0200. Follow up:CHANGE IV ATB TO PO. HOME WOUND-VAC PLACED AND DISCHARGE TO HOME.
--- NOTE | 2016-10-24 10:51 | NUR ---
PT SCREENED D/T LOS. EST NEEDS: [id number] KCALS, 90-137 GM PROTEIN, 1 ML/KCAL FLUIDS. BMI IN OBESE RANGE. INTAKE CONSISTENTLY 75-100%. NOT AT RISK. TO DISCHARGE TOMORROW. WILL ASSIST NEEDED.
--- NOTE | 2016-10-24 17:11 | NUR ---
Significant events: Pt A/Ox3. VSS. No complaints of pain. Up SBA. Wound vac in place, dressing changed by WOC today. Did not go home as planned d/t increased WBC. Pt has been tearful and withdrawn. Upset about antibiotics "not working". Med surg status. IV antibiotics continue. On RA. Follow up: ID to see to address a change in antibiotics.
--- NOTE | 2016-10-25 00:17 | NUR ---
Significant Event: VSS. Alert and oriented X3. Continues to be very sad about not being able to go home. States he feels "discouraged". Left ant. FA with phlebitis. Area marked and redness improved. new IV started to right post. wrist. Wound Vac to right groin intact. No c/o pain. Report given to Smiley Martinez RN at 2300. Follow up: Continue to monitor.
[2016-10-25 04:14] LABS: BASOPHIL # 0.1 K/uL (0.0-0.2); BASOPHIL % 0.8 %; EOSINOPHIL # 0.2 K/uL (0.0-0.5); EOSINOPHIL % 2.2 %; HEMATOCRIT 41.4 % (37.0-53.0); HEMOGLOBIN 14.3 g/dL (12.0-17.0); IMMATURE GRANULOCYTE # 0.1 K/uL (0.0-0.3); IMMATURE GRANULOCYTE % 0.7 %; LYMPHOCYTE # 3.3 K/uL (0.8-4.0); LYMPHOCYTE % 30.1 %; MCH 31.1 pg (27.0-34.0); MCHC 34.5 gm/dL (32.0-36.5); MONOCYTE # 0.9 K/uL (0.0-1.0); MONOCYTE % 8.1 %; MPV 9.7 fl (9.4-12.4); NEUTROPHIL # (ANC) 6.3 K/uL (1.4-9.0); NEUTROPHIL % 58.1 %; NRBC % 0 /100WBC (0-0.00); PLATELET COUNT 322 K/uL (150-450); RDW-CV 13.2 % (11.9-14.6); WBC 10.8 K/uL (4.0-11.0)
[2016-10-25 04:31] LABS: ANION GAP 11.1 (10.0-19.0); BLOOD UREA NITROGEN 12 mg/dL (6-24); CALCIUM 8.7 mg/dL (8.5-10.5); CHLORIDE 103 mMol/L (96-110); CO2 26 mMol/L (22-32); CREATININE 0.9 mg/dL (0.6-1.3); POTASSIUM 4.1 mMol/L (3.7-5.1); SODIUM 136 mMol/L (135-145)
--- NOTE | 2016-10-25 05:32 | NUR ---
Significant Event:A/Ox3. VSS on RA. Depressed about having to stay in the hospital a few more days to figure out ATB. Wound-vac intact to R)groin. Follow up:Patient has order that he can get off of floor maybe a ENTRY WRITER author could take him out to get fresh air.
[2016-10-25] MEDS ORDERED: DOXYCYCLINE100 MG PO (10:28)
[2016-10-25] MEDS ORDERED: ALIGN4 MG (10:30)
--- NOTE | 2016-10-25 11:30 | NUR ---
PATIENT GIVEN WRITTEN DISMISSAL INSTRUCTIONS INCLUDING NEW HOME MEDICATION LIST WITH INFORMATION ON NEW MEDS, PRESCRIPTIONS, FOLLOW-UP APPOINTMENT TIMES WITH PCP AND WOUND CARE, DIET AND ACTIVITY RESTRICTIONS. PATIENT STATES UNDERSTANDING OF INFORMATION DISCUSSED WITH RN. PIV REMOVED FROM RIGHT WRIST WITH GAUZE AND COBAN APPLIED. PATIENT DRESSED IN OWN CLOTHING AND TAKEN TO FRONT OF [facility] ENTRANCE VIA WHEELCHAIR ACCOMPANIED BY RN AND BELONGINGS AT 1130. RUTH RAND APRN AWARE OF PATIENT DRIVING PRIVATE VEHICLE TO HOME.
--- NOTE | 2016-10-25 13:50 | NUR ---
Diabetes center note: 1100 patient complete the Diabetes Survival Skills checklist and a copy is applied to chart. Denies further questions at this time.
== END 2016-10-25 11:30 | disposition disaster alternative care site (69) | DRG 301 ==
LOC: GPOC 08:00 → EDSTATUS 10-19 08:00 → GSDC 10-19 08:00 → GPCU 10-19 08:07 → GSDC 10-19 11:30 → GPCU 10-19 12:03
PROVIDERS: Internal Medicine; Nurse Practitioner Family; ADMIT Surgery Vascular Surgery
PROC: 0H9AXZZ Drainage of Inguinal Skin, External Approach (ICD-10-PCS; principal; 2016-10-19)
DX: I73.9 Peripheral vascular disease, unspecified (principal); E11.8 Type 2 diabetes mellitus with unspecified complications; Z79.4 Long term (current) use of insulin; I10 Essential (primary) hypertension; N50.1 Vascular disorders of male genital organs; Z87.891 Personal history of nicotine dependence
CPT/HCPCS: J0690; J1650; J2001; J2250; J3010; J3370; J7030; J7040; J7050; J7060

== ENCOUNTER 2016-11-20 12:25 | Inpatient (IN) | payer OTHER ==
[~2016-11-20] VITALS: Ht 193 cm; Wt 139.8 kg
--- NOTE | ~2016-11-20 | OR ---
PATIENT'S NAME: LIONEL SIMMONS [facility] AGE: 56 Y [address] ROOM: [place] [address] LOCATION: [facility] ADMIT DATE: 11/20/2016 OR/Procedure Report DISCHARGE DATE: FAMILY PHYSICIAN: PHYSICIAN, UNKNOWN ATTENDING PHYSICIAN: Leena BRANHMA SURGEON: Aj Johnson MD CREDIT REPORTING CLERK: DATE OF PROCEDURE: 11/20/2016 PREOPERATIVE DIAGNOSIS: Recurrent bleeding from the right groin. POSTOPERATIVE DIAGNOSIS: Recurrent bleeding from the right groin. PROCEDURE PERFORMED: Ligation of right common femoral artery. STUDIO HAND: ROSALIA Jo. ANESTHESIA: General. ESTIMATED BLOOD LOSS: 1500 mL. FINDINGS: Complete breakdown of the common femoral artery with massive blood loss. Ligation performed in order to save the patient's life. DESCRIPTION OF PROCEDURE: The patient was in the PACU post his initial pseudoaneurysm repair surgery when they realized that he was bleeding profusely from the groin. He was brought back to the operating room emergently bleeding profusely. He was tubed, transferred back to the bed. We then re-opened up the wound, which we had left open and we found that he was bleeding heavily from the common femoral artery. We placed clamps proximally and distally on the artery. We then attempted multiple times to use 6-0 and 5- 0 Prolene in order to repair the artery, but each time we would pass the needle through the artery, it would form another hole and continue to bleed. We did not have any cryo vein or any sort of conduit in order to replace this artery with at this time and so we made a decision to ligate the artery. The patient will likely lose this limb due to poor perfusion and he will require an above-knee amputation. The wound was copiously irrigated and packed once again. The patient was transferred to the Surgical ICU intubated. AJ JOHNSON MD FKM/tarcyl PATIENT'S NAME: LIONEL SIMMONS [facility] AGE: 56 Y [address] ROOM: [place] [address] LOCATION: [facility] ADMIT DATE: 11/20/2016 OR/Procedure Report DISCHARGE DATE: FAMILY PHYSICIAN: PHYSICIAN, UNKNOWN ATTENDING PHYSICIAN: Leena BRANHAM /[id number] d: 11/21/16 0023 t: 11/26/16 1112, OPERATIVE SUMMARY
--- NOTE | ~2016-11-20 | DS ---
PATIENT'S NAME: LIONEL SIMMONS [facility] AGE: 56 Y [address] ROOM: [place] [address] LOCATION: [facility] ADMIT DATE: 11/20/2016 Discharge Summary DISCHARGE DATE: 11/22/2016 FAMILY PHYSICIAN: Physician, Unknown ATTENDING PHYSICIAN: Leena Burris ADMISSION DIAGNOSIS: Severe sepsis. DISCHARGE DIAGNOSIS: Septic shock secondary to infected pseudoaneurysm of right common femoral artery, resolving, on antibiotic. SECONDARY DIAGNOSES: 1. Methicillin-susceptible Staphylococcus aureus bacteremia. 2. Infected pseudoaneurysm. 3. Acute kidney injury. 4. Critical limb ischemia. 5. Diabetes mellitus, type 2. 6. Anemia of blood loss. 7. Hypertension. 8. Tobacco use. 9. Obesity. PROCEDURES PERFORMED: 1. On 11/20/2016, evacuation of infected right groin pseudoaneurysm, 7 cm with interrupted 6-0 Prolene patch placement on the bleeding source by Dr. Brown. 2. On 11/20/2016, ligation of the right common femoral artery. 3. Right internal jugular 12-Malay trauma line, central line placement on 11/28/2016. 4. CTA of the lower extremity showing large pseudoaneurysm arising from the right common femoral artery. CONSULTATIONS: Critical Care, cyber systems engineer, and vascular surgeon, Dr. Johnson. HISTORY OF PRESENT ILLNESS: The patient is a 56-year-old gentleman with past medical history of diabetes mellitus, type 2; hypertension; and peripheral vascular disease, with a recent history of right femoral endarterectomy with complication of infected seroma with wound VAC, who presents here from [place] with bacteremia and sepsis. The patient reports that he had a wound VAC accidentally dislodged on Monday night. He put gauze on his right groin wound and went to Wound Clinic on Monday. Wound VAC was placed again and was discharged to home from the Wound Clinic. However, since then, he reports of having episodes of fever and chills. He reports that he thought that there was some sort of viral infection. He reports that his temperature went all PATIENT'S NAME: LIONEL SIMMONS [facility] AGE: 56 Y [address] ROOM: [place] [address] LOCATION: GICU ADMIT DATE: 11/20/2016 Discharge Summary DISCHARGE DATE: 11/22/2016 FAMILY PHYSICIAN: Physician, Unknown ATTENDING PHYSICIAN: Leena Burris the way up to 102. His symptoms did not improve so he presented to [place] [facility] with fever and chills. The patient was initially seen in the emergency department, and was started on clindamycin and was admitted for sepsis. During his stay, his blood culture grew gram-positive cocci resembling Staphylococcus aureus with sensitivity pending. The patient was also noted to have swelling in his right lower extremity. The patient was transferred to our facility for further care and possible vascular evaluation. The transferring PA reports that he was given a bolus of fluids and started on maintenance fluids. Transferring PA reports that he has good palpable distal pulses before transfer. HOSPITAL COURSE: The patient was noted to have severe sepsis and his antibiotic was changed to vancomycin and was started on IV fluids. Dr. Johnson was consulted for vascular evaluation. Initially, there was suspicion for DVT and a venous Doppler was done which shows a pseudoaneurysm. Negative for DVT. Subsequent CTA was done that shows a pseudoaneurysm of the right lower extremity around the common femoral artery was 7 cm. The patient was taken the same day to the OR and there was ligation of the pseudoaneurysm was done with patch placement on the common femoral artery from the bleeding site. However, soon afterwards, the patient was noted to have more bleeding sites around his right groin. The patient was taken back to the OR and had clipping of the common femoral artery and was transferred to the ICU. Intubated. The patient was noted to be in septic shock. The patient was given fluid and started on pressor. The patient was also seen by Critical Care physician. The patient hemodynamically improved and was subsequently extubated. The patient was noted to have low hemoglobin of 6. The patient was given 2 units of packed red blood cells. Etiology secondary to anemia of blood loss due to procedure. Blood culture taken from the outside hospital and also on the day of discharge, shows MSSA. Vancomycin and his antibiotics of Zyvox and Zosyn were discontinued and started on nafcillin 4 g IV q.4 hours. Cardiology was consulted for possible BARBARA. However, during stay after discussion with the family member and also Dr. Johnson, the patient wanted to transfer out for a second opinion for his right lower extremity. Amputation was discussed but, however, due to the patient's somewhat viable tissue of his right lower extremity it was decided amputation to be hold for now. The patient has dopplerable pulse of his right lower extremity. He is able to move with somewhat decreased sensation. After a long discussion with Dr. Johnson, family, and patient, the patient decided to have a second opinion at the [facility] ([facility]). Dr. Johnson discussed with Dr. Ackerman (s/l), vascular surgeon. Also, during stay patient was noted to have KAYLA secondary to prerenal and sepsis was corrected with IV fluids. CONDITION: Stable. DISPOSITION: [facility]. PATIENT'S NAME: LIONEL SIMMONS [facility] AGE: 56 Y [address] ROOM: [address] [address] LOCATION: [facility] ADMIT DATE: 11/20/2016 Discharge Summary DISCHARGE DATE: 11/22/2016 FAMILY PHYSICIAN: Physician, Unknown ATTENDING PHYSICIAN: Leena Burris DISCHARGE MEDICATIONS: Please see MAR. FOLLOW-UP: Follow up with vascular surgeon at the [facility]. PHYSICAL EXAMINATION: VITAL SIGNS: Temperature of 98.3, blood pressure 165/59, respiratory rate 17, pulse of 85, and saturating 100% on 2 L. GENERAL APPEARANCE: The patient is alert and awake, in no acute distress. HEENT: Head; normocephalic and atraumatic. Eyes; extraocular muscles intact. CHEST: Clear to auscultation bilaterally. HEART: Regular rate and rhythm. No murmurs, rubs, or gallops. ABDOMEN: Soft, nontender, and nondistended. Bowel sounds present. LINES: The patient have a right IJ central line and also right radial A-line. ART GILDER: The patient is alert and oriented x3. EXTREMITIES: Decreased sensation in the right lower extremity compared to left. Pulses dopplerable by Doppler. Greater than 30 minutes were spent in discharge planning. MD VICKI ROLAND/praveen /[id number] d: 11/22/161920 t: 12/03/16 1552, DISCHARGE SUMMARY
--- NOTE | ~2016-11-20 | OR ---
[facility] AGE[facility] 56 Y [address] ROOM: [place] [id number] LOCATION: GICU ADMIT DATE: 11/20/2016 OR/Procedure Report DISCHARGE DATE: FAMILY PHYSICIAN: PHYSICIAN, UNKNOWN ATTENDING PHYSICIAN: Leena BRANHAM SURGEON: Fadi Silva MD PATIENT SERVICES REP: Baljit Clancy RN. DATE OF PROCEDURE: 11/20/2016 PROCEDURE PERFORMED: Right internal jugular 12-Fijian trauma line, central line placement. INDICATIONS FOR PROCEDURE: Need for large bore venous access secondary to massive hemorrhage following repair of pseudoaneurysm on the right femoral artery. PREOPERATIVE DIAGNOSES: 1. Massive hemorrhage. 2. History of vascular disease. 3. Hypertension. 4. Morbid obesity. 5. Sepsis. POSTOPERATIVE DIAGNOSES: 1. Massive hemorrhage. 2. History of vascular disease. 3. Hypertension. 4. Morbid obesity. 5. Sepsis. COMPLICATIONS: None noted. ESTIMATED BLOOD LOSS: Less than 5 mL. CONSENT: I was unable to obtain consent as the patient was already under anesthetic by Myriam Tripp. The patient's family members were not immediately accessible as the patient was actively hemorrhaging in the operating room and needed definitive access. I elected to proceed under presumed consent. DESCRIPTION OF PROCEDURE: The patient was placed in supine position. Sterile prep with ChloraPrep x2. Sterile full-body drape used to the contact of the operative drape. Sterile gown and sterile gloves were used. Surgical mask and cap worn all time. Utilizing real-time ultrasound guidance in a sterile fashion with a 16-gauge needle, the right internal jugular vein was cannulated on the first attempt without difficulty. Nonpulsatile blood flow. Dark blood PATIENT'S NAME: LIONEL SIMMONS [facility] AGE: 56 Y [address] ROOM: [place] [id number] LOCATION: GICU ADMIT DATE: 11/20/2016 OR/Procedure Report DISCHARGE DATE: FAMILY PHYSICIAN: PHYSICIAN, UNKNOWN ATTENDING PHYSICIAN: Leena BRANHAM aspirated. Over a wire, a 12-Fijian central line was inserted to 16 cm without difficulty. Wire and needle removed intact. Catheter sutured in place. Sterile occlusive Tegaderm dressing applied. Stat portable chest x- ray will be ordered postoperatively. MD KEVYN HATHAWAY/praveen /[id number] d: 11/21/16 0102 t: 11/24/16 0959, OPERATIVE SUMMARY
--- NOTE | ~2016-11-20 | CON ---
[facility] AGE[facility] 56 Y [address] ROOM: [address] [address] LOCATION: CU ADMIT DATE: 11/20/2016 Consultation DISCHARGE DATE: 11/22/2016 FAMILY PHYSICIAN: Physician, Unknown ATTENDING PHYSICIAN: Leena Burris DATE OF CONSULTATION: 11/21/2016 REFERRING PHYSICIAN: Aj Johnson MD HISTORY OF PRESENTING ILLNESS: This is a 56-year-old gentleman with a past medical history of diabetes mellitus type 2, hypertension, and peripheral vascular disease with a recent history of right femoral endarterectomy with complication of infected seroma with wound VAC who presents to [facility] from [place] with bacteremia and sepsis. The patient reported that his wound VAC was accidentally removed on Monday night. The patient was taken to the operating room by Dr. Johnson and Dr. Brown. Dr. Johnson tried to fix the graft, but he was not able to fix it. Subsequently, the patient was transferred to the intensive care unit intubated. The patient has possibly plans for amputation. The patient is currently intubated and sedated. The patient also has a history of bacteremia that is being treated with antibiotics. Further history is not available as the patient is intubated and sedated. PAST MEDICAL HISTORY: 1. Hypertension. 2. Diabetes mellitus type 2. 3. Obesity. 4. Peripheral vascular disease. PAST SURGICAL HISTORY: 1. Femoral endarterectomy. 2. Appendectomy. 3. Right shoulder surgery. FAMILY HISTORY: Mother had a history of uterine cancer and father has a history of coronary artery disease. SOCIAL HISTORY: The patient reports that he has a history of smoking but stopped smoking this PATIENT'S NAME: [facility] AGE: 56 Y [address] ROOM: [address] [address] LOCATION: [facility] ADMIT DATE: 11/20/2016 Consultation DISCHARGE DATE: 11/22/2016 FAMILY PHYSICIAN: Physician, Unknown ATTENDING PHYSICIAN: Leena Burris year. Denies any alcohol or illicit drug abuse. HOME MEDICATIONS: Please refer to the MAR. REVIEW OF SYSTEMS: The patient is intubated and sedated, hence the review of systems is not obtainable. PHYSICAL EXAMINATION: GENERAL: The patient is lying in bed, comfortable, does not appear in acute distress. He is intubated and sedated. VITAL SIGNS: His temperature here was 99, blood pressure was 120/80, heart rate was 70, respiratory rate was 18, and saturation was 97% on 50% FiO2. HEENT: Eyes are nonicteric. Pupils are equal, reactive to light. Normocephalic, atraumatic. No ear or nasal discharge. NECK: Supple. No lymphadenopathy. No jugular venous distention. LUNGS: Good bilateral air entry. No rales or rhonchi. HEART: S1 and S2. No murmurs, rubs, or gallops. ABDOMEN: Soft, nontender. No palpable organs. LOWER EXTREMITIES: No edema, clubbing, or cyanosis. NEUROLOGICAL: The patient is intubated and sedated. LABORATORY DATA: At the time of my evaluation included a white cell count of 21.4, hemoglobin of 10.8, hematocrit 31.2, and platelets of 188. ANC was 15.2. PTT was 34. Sodium was 131, potassium was 4.9, chloride 103, CO2 was 19, anion gap was 13.9, glucose was 324. Creatinine was 1.4. Total protein was 5.5. AST was 65. ALT was 33. Estimated GFR was 51. Blood cultures were positive for Staph aureus. IMPRESSION: 1. Respiratory failure postoperatively secondary to severe sepsis. 2. Staphylococcus bacteremia secondary to groin infection. 3. Diabetes mellitus. RECOMMENDATIONS: 1. At the current point, the patient is intubated and sedated. If the plan is to go to the operating room tomorrow morning, then we will maintain the patient intubated. If the patient does not need to go to the operating room, then we will extubate the patient after doing what primarily has been done. 2. We will continue current antibiotics. 3. We will start the patient on insulin drip. 4. Gastrointestinal and deep venous thrombosis prophylaxis. PATIENT'S NAME: LIONEL SIMMONS [facility] AGE: 56 Y [address] ROOM: [address] [place], [place] [address] LOCATION: [facility] ADMIT DATE: 11/20/2016 Consultation DISCHARGE DATE: 11/22/2016 FAMILY PHYSICIAN: Physician, Unknown ATTENDING PHYSICIAN: Fatuma,Dagmawe 5. We will also follow up with Vascular Surgery. I have spent 60 minutes in direct care of this patient. Thank you for allowing me to participate in the care of this patient. MD DAYA ZAMORA/praveen /[id number] d: 12/13/162235 t: 12/14/16 1626, CONSULTATION REPORT
--- NOTE | ~2016-11-20 | HP ---
PATIENT'S NAME: LIONEL SIMMONS [facility] AGE: 56 Y [address] ROOM: [address] [place] [id number] LOCATION: [facility] ADMIT DATE: 11/20/2016 History & Physical DISCHARGE DATE: FAMILY PHYSICIAN: PHYSICIAN, UNKNOWN ATTENDING PHYSICIAN: Leena BRANHAM DATE OF SERVICE: CHIEF COMPLAINT: Fever and chills. HISTORY OF PRESENT ILLNESS: The patient is a 56-year-old gentleman with past medical history of diabetes mellitus type 2, hypertension, and peripheral vascular disease, with recent history of right femoral endarterectomy with complication of infected seroma with wound VAC, who presents here from [place] with bacteremia and sepsis. The patient reports that he had his wound VAC accidentally removed on Monday night. He put a gauze in his right groin wound and went to [facility] on Monday. Wound VAC was placed in again and was discharged to home from the Wound Clinic. However ever since then, he reports an episode of fever and chills. He reports that he thought that it was some sort of viral infection. He reports the temperature up to 102. However, his symptoms did not improve, so he presented to [place] [facility] with fever and chills. The patient was initially seen in the emergency department and was started on clindamycin and was admitted for sepsis. During his stay, his blood culture grew 1/2 gram-positive cocci resembling Staph with culture and sensitivity pending. The patient was also noted to have swelling of his right lower extremity. The patient was transferred to our facility for further care and possible vascular evaluation. The transferring Joseph SEGURA reports that he has given him a bolus of fluids and had him on maintenance fluids, 200 mL an hour. Reports chest x-ray was clear. He also reports that he has palpable distal pulses before transfer. The patient denies any nausea, vomiting, abdominal pain, chest pain, dizziness, and vertigo. PAST MEDICAL HISTORY: Hypertension, diabetes mellitus type 2, obesity, and peripheral vascular disease. PAST SURGICAL HISTORY: Femoral endarterectomy, appendectomy, and right shoulder surgery. FAMILY HISTORY: Mother had a history of uterine cancer and father has a history of coronary PATIENT'S NAME: LIONEL SIMMONS [facility] AGE: 56 Y [address] ROOM: [address] [place], [place] [address] LOCATION: [facility] ADMIT DATE: 11/20/2016 History & Physical DISCHARGE DATE: FAMILY PHYSICIAN: PHYSICIAN, UNKNOWN ATTENDING PHYSICIAN: Leena BRANHAM artery filiberto. SOCIAL HISTORY: The patient reports that he has a history of smoking, but stopped smoking this year. Denies drinking. MEDICATIONS: Currently being reconciled. REVIEW OF SYSTEMS: All systems have been reviewed and are negative except for what I mentioned under HPI. PHYSICAL EXAMINATION: VITAL SIGNS: Temperature 98.5, blood pressure 123/71, heart rate of 85, respiratory rate of 16, saturating 95% on room air. GENERAL APPEARANCE: The patient is alert and awake, in no acute distress. HEAD: Normocephalic, atraumatic. EYES: Extraocular muscles intact. ORAL CAVITY: Moist oral cavity. NOSE: No nasal discharge. EARS: No ear discharge. CHEST: Clear to auscultation bilaterally. ABDOMEN: Soft, nontender, and nondistended. Bowel sounds present. MOISTURE METER READER: Patient is alert and oriented x3. Motor and sensory grossly intact. SKIN: Right groin erythema that is changed around wound VAC. The wound VAC is in place. Looks clean, dry, and intact. No outside drainage seen. MUSCULOSKELETAL: Edema on right lower extremity. Right foot dorsalis pedis artery not palpable with fingers. Weak palpation heard on Doppler. LABORATORY DATA: Labs done at the outside hospital shows white blood cell count of 17, hemoglobin 13, and platelet of 166. Sodium of 124, potassium of 4.2, CO2 of 19, and creatinine of 0.7. Procalcitonin 0.48. ASSESSMENT AND PLAN: 1. Sepsis. The patient is presenting with fever, leukocytosis, and 1/2 gram- positive cocci resembling Staph. The patient was initially on clindamycin, however, clindamycin is changed to vancomycin. We will continue vancomycin. Pharmacy to dose vancomycin. We will await blood culture from [place]. We will also repeat blood culture while he is here. We will acquire lactate level. Continue IV fluid. 2. Cellulitis. Cellulitis around wound VAC. Currently on vancomycin. 3. Critical limb ischemia. The patient with poor circulation in right lower extremity. Continue Plavix and statin. Dr. Johnson to see the patient PATIENT'S NAME: LIONEL SIMMONS [facility] AGE: 56 Y [address] ROOM: [address] [address] LOC[facility]: [facility] ADMIT DATE: 11/20/2016 History & Physical DISCHARGE DATE: FAMILY PHYSICIAN: PHYSICIAN, UNKNOWN ATTENDING PHYSICIAN: Leena BRANHAM during stay. 4. Right lower extremity swelling. We will want to rule out deep vein thrombosis. We will acquire Doppler. 5. Diabetes mellitus, type 2, stable. We will discontinue oral hypoglycemia medication. We will start the patient on sliding scale insulin. 6. Hyponatremia, etiology most likely secondary to hydrochlorothiazide use. We will discontinue hydrochlorothiazide. We will check sodium daily. Greater than 70 minutes was spent on patient care. Assessment and plan was discussed with the patient. Greater than 50% of the time was spent on chart evaluation, the patient interview, and also discussion with Dr. Johnson. We will admit the patient for sepsis with gram-positive cocci bacteremia. Code status discussed on admission, full code. MD VICKI ROLAND/praveen /[id number] D: 849 T: 550 HISTORY & PHYSICAL
--- NOTE | ~2016-11-20 | ENPV ---
Vascular Lower Extremities Arterial Duplex and Lower Extremities DVT Study Procedure Demographics Patient Name LIONEL SIMMONS Date of Study 11/20/2016 Patient Number [id number] Gender Male Date of 1960 Age 56 Visit Number [id number] Height Accession Number [id number] Weight Room Number G6203 BSA BMI Referring Alex Rocha MD Interpreting Alex Rocha MD Physician Fatuma Stern Physician Physician Ordering Physician Fatuma Stern Yard Conductor Soap Worker Romain [place], T Conclusions Summary Technically difficult exam secondary to edema and sub-optimal images. The right common femoral vein and femoral vein were not adequately visualized, cannot rule out deep vein thrombosis in these veins. The right popliteal vein is patent with stasis flow. The right posterior tibial and peroneal veins are patent. Incidental finding: There is a pseudoaneurysm in the right groin measuring approximately 7.92cm x 6.77cm and 1.03cm deep. It originates from the right proximal common femoral artery with a pseudoaneurysm neck measuring approximately 1.40cm wide, 0.41cm long, and 8.02cm deep. Occlusion of the right femoral artery with reconstitution in the right mid popliteal artery. Very diminished monophasic Doppler waveforms are noted in the right popliteal artery, posterior tibial artery, and posterior tibial artery. Procedure Type of Study: Extremities Arteries:Lower Extremities Arterial Duplex, Arterial Lower Extremity Right. Veins:Lower Extremities DVT Study, Lower Extremity Right. Indications for Study:Pain in Limb. Additional Indications:Right lower extremity pain and edema Appropriate Use Criteria:9 Allergies - No known allergies. Patient Status:STAT. Study Location:Inpatient Portable. Technical Quality:Limited visualization due to edema. - Preliminary reported to: and @ 2177. Velocities are measured in cm/s ; Diameters are measured in cm LE Duplex Measurements + ++-----+ +----+---+ + ! !!Right! !Left! ! ! + ++-----+ +----+---+ + !Location !!PSV !Wave Desc.! !PSV!Wave Desc. ! + ++-----+ +----+---+ + !Femoral !!284 !Biphasic ! ! ! ! + ++-----+ +----+---+ + !Prox SFA !!0 !Occluded ! ! ! ! + ++-----+ +----+---+ + !Mid SFA !!0 !Occluded ! ! ! ! + ++-----+ +----+---+ + !Dist SFA !!0 !Occluded ! ! ! ! + ++-----+ +----+---+ + !Prox Popliteal !!0 !Occluded ! ! ! ! + ++-----+ +----+---+ + !Mid Popliteal !!11 !Monophasic! ! ! ! + ++-----+ +----+---+ + !Dist Popliteal !!16 !Monophasic! ! ! ! + ++-----+ +----+---+ + !Dist DRAPERY CUTTER !!7 !Monophasic! ! ! ! + ++-----+ +----+---+ + !DP !!7 !Monophasic! ! ! ! + ++-----+ +----+---+ + Velocities are measured in cm/s ; Diameters are measured in cm Right Lower Extremities DVT Study Measurements Right 2D and Doppler Measurements + + + + +------+------+ + !Location !Visualized!Compressibility!Thrombosis!Signal!Reflux!Reflux ! ! ! ! ! ! ! !(sec) ! + + + + +------+------+ + !Common !No ! ! ! ! ! ! !Femoral ! ! ! ! ! ! ! + + + + +------+------+ + !Prox !No ! ! ! ! ! ! !Femoral ! ! ! ! ! ! ! + + + + +------+------+ + !Mid Femoral!No ! ! ! ! ! ! + + + + +------+------+ + !Dist !No ! ! ! ! ! ! !Femoral ! ! ! ! ! ! ! + + + + +------+------+ + !Popliteal !Yes !Yes !None !Phasic! ! ! + + + + +------+------+ + !Gastroc !Yes !Yes !None ! ! ! ! + + + + +------+------+ + !PTV !Yes !Yes !None ! ! ! ! + + + + +------+------+ + !Peroneal !Yes !Yes !None ! ! ! ! + + + + +------+------+ + Left Lower Extremities DVT Study Measurements Left 2D and Doppler Measurements + + + + +------+------+ + !Location !Visualized!Compressibility!Thrombosis!Signal!Reflux!Reflux ! ! ! ! ! ! ! !(sec) ! + + + + +------+------+ + !Common !Yes !Yes !None !Phasic!No ! ! !Femoral ! ! ! ! ! ! ! + + + + +------+------+ + Signature dtt: YENNIFER WRIGHT dtedgardo: 11/20/16 1505 Physician Self Edit
--- NOTE | ~2016-11-20 | OR ---
PATIENT'S NAME: LIONEL SIMMONS [facility] AGE: 56 Y [address] ROOM: [place] [address] LOCATION: [facility] ADMIT DATE: 11/20/2016 OR/Procedure Report DISCHARGE DATE: FAMILY PHYSICIAN: PHYSICIAN, UNKNOWN ATTENDING PHYSICIAN: Leena BRANHAM SURGEON: Aj Johnson MD PARK MAINTAINER: ROSALIA Jo. Dr. Agustin Brown also assisted with the surgery. He helped with repair of the artery as well as retraction. DATE OF PROCEDURE: 11/20/2016 PREOPERATIVE DIAGNOSIS: Infected right groin pseudoaneurysm, 7 cm. ANESTHESIA: General. ESTIMATED BLOOD LOSS: 500 mL. ESTIMATED BLOOD LOSS: 500 mL. OPERATIVE FINDINGS: Infected pseudoaneurysm with bleeding from the patch on the common femoral artery. DESCRIPTION OF PROCEDURE: The patient was brought to the operating room, placed supine on the operating table, placed under anesthesia, prepped and draped in sterile manner. Preoperative time-out was performed. The patient received preoperative antibiotics. We made an incision along the previous right common femoral endarterectomy site, dissected down the fascia, incised the fascia in a longitudinal manner. We were then met with a large 7 cm aneurysm. When we were attempting to dissect around it in a delicate fashion, however, the aneurysm ruptured. There was a large evacuation of blood. I was able to put my hands in and attempt on the common femoral artery. At that point, Dr. Brown joined me. He opened up the remainder of the sac. Then, dissected down and found the bleeding source on the artery and placed two interrupted 6-0 Prolenes to the patch. We then copiously irrigated the wound. We then packed it with Dakin-soaked solution. The patient tolerated the procedure well and transferred back to the Surgical ICU. MD FLORENTINO SINGLETONM/tracyl PATIENT'S NAME: LIONEL SIMMONS [facility] AGE: 56 Y [address] ROOM: [place] [address] LOCATION: [facility] ADMIT DATE: 11/20/2016 OR/Procedure Report DISCHARGE DATE: FAMILY PHYSICIAN: PHYSICIAN, UNKNOWN ATTENDING PHYSICIAN: Leena BRANHAM /[id number] d: 11/20/16 2358 t: 11/26/16 1110, OPERATIVE SUMMARY
[2016-11-20 15:06] LABS: HEMATOCRIT 36.4 % (37.0-53.0); HEMOGLOBIN 12.9 g/dL (12.0-17.0); MCH 30.6 pg (27.0-34.0); MCHC 35.4 gm/dL (32.0-36.5); MCV 86.3 fl (83.0-98.0); MPV 10.3 fl (9.4-12.4); RBC 4.22 M/uL (4.00-6.00); RDW-CV 13.9 % (11.9-14.6)
[2016-11-20 15:08] LABS: PLATELET COUNT 161 K/uL (150-450); WBC 17.3 K/uL (4.0-11.0)
[2016-11-20 15:14] LABS: INR - (THERAPEUTIC) 1.08 (0.92-1.07); PROTIME 11.4 SECONDS (9.8-11.4); PTT 32 SECONDS (25-32)
[2016-11-20 15:28] LABS: ALBUMIN 2.6 gm/dL (3.5-5.0)
[2016-11-20 15:32] LABS: TOTAL BILIRUBIN 0.8 mg/dL (0.0-1.5)
[2016-11-20 16:19] LABS: LYMPHOCYTE # 1.2 K/uL (0.8-4.0); LYMPHOCYTE % 7 %; MONOCYTE # 0.7 K/uL (0.0-1.0); SEGMENTED NEUTROPHIL # 9.7 K/uL (1.4-9.0); SEGMENTED NEUTROPHIL % 56 %
[2016-11-20 16:21] LABS: ABSOLUTE NEUTROPHIL CT (ANC) 15.2 K/uL (1.4-9.0); BANDED NEUTROPHIL # 5.5 K/uL (0.0-0.1); BANDED NEUTROPHILS % 32 %
[2016-11-20 21:18] LABS: HEMATOCRIT 31.2 % (37.0-53.0); HEMOGLOBIN 10.8 g/dL (12.0-17.0); MCH 30.6 pg (27.0-34.0); MCHC 34.6 gm/dL (32.0-36.5); MCV 88.4 fl (83.0-98.0); MPV 10.6 fl (9.4-12.4); PLATELET COUNT 197 K/uL (150-450); RBC 3.53 M/uL (4.00-6.00); RDW-CV 14.1 % (11.9-14.6)
[2016-11-20 21:26] LABS: PROTIME 11.6 SECONDS (9.8-11.4); PTT 34 SECONDS (25-32)
[2016-11-20 21:33] LABS: ANION GAP 13.5 (10.0-19.0); CALCIUM 6.9 mg/dL (8.5-10.5); CREATININE 1.3 mg/dL (0.6-1.3); POTASSIUM 5.5 mMol/L (3.7-5.1)
[2016-11-20 21:38] LABS: LYMPHOCYTE # 2.3 K/uL (0.8-4.0); LYMPHOCYTE % 9 %; MONOCYTE # 2.5 K/uL (0.0-1.0)
[2016-11-20 21:39] LABS: BANDED NEUTROPHIL # 6.5 K/uL (0.0-0.1); BANDED NEUTROPHILS % 26 %; SEGMENTED NEUTROPHIL # 13.5 K/uL (1.4-9.0); SEGMENTED NEUTROPHIL % 54 %
[2016-11-20 21:43] LABS: BICARBONATE 20.2 mmol/L (18.0-23.0); PCO2 44 mmHg (35-45); PO2 197 mmHg (80-90)
[2016-11-21 00:56] LABS: BILIRUBIN URINE NEGATIVE (NEGATIVE); BLOOD URINE 150 /UL (NEGATIVE); COLOR URINE YELLOW (YELLOW); GLUCOSE URINE 250 mg/dL (NEGATIVE); KETONE URINE NEGATIVE (NEGATIVE); LEUKOCYTES URINE 25 /UL (NEGATIVE); NITRITE URINE NEGATIVE (NEGATIVE); PROTEIN URINE 100 mg/dL (NEGATIVE); TURBIDITY URINE 1+ (CLEAR); UROBILINOGEN URINE 4 mg/dL (NORMAL)
[2016-11-21 01:07] LABS: EPITHELIAL URINE 0-2 #/HPF (NEGATIVE)
[2016-11-21 01:08] LABS: AMORPHOUS URINE 1+ (NEGATIVE)
[2016-11-21 01:11] LABS: BACTERIA URINE MODERATE (NEGATIVE)
[2016-11-21 01:12] LABS: HYALINE CAST URINE 0-2 #/LPF (NEGATIVE)
[2016-11-21 02:20] LABS: ANION GAP 14.9 (10.0-19.0); CREATININE 1.5 mg/dL (0.6-1.3); POTASSIUM 4.9 mMol/L (3.7-5.1)
[2016-11-21 02:23] LABS: CALCIUM 6.9 mg/dL (8.5-10.5)
[2016-11-21 06:00] LABS: HEMATOCRIT 26.6 % (37.0-53.0); HEMOGLOBIN 9.4 g/dL (12.0-17.0); MCH 30.3 pg (27.0-34.0); MCHC 35.3 gm/dL (32.0-36.5); MCV 85.8 fl (83.0-98.0); MPV 10.9 fl (9.4-12.4); PLATELET COUNT 188 K/uL (150-450); RDW-CV 14.5 % (11.9-14.6)
[2016-11-21 06:08] LABS: ALBUMIN 2.5 gm/dL (3.5-5.0); ANION GAP 13.9 (10.0-19.0); CALCIUM 7.1 mg/dL (8.5-10.5); CREATININE 1.4 mg/dL (0.6-1.3); POTASSIUM 4.9 mMol/L (3.7-5.1); TOTAL BILIRUBIN 1.3 mg/dL (0.0-1.5); TOTAL PROTEIN 5.5 g/dL (6.0-8.4)
[2016-11-21 06:09] LABS: WBC 21.4 K/uL (4.0-11.0)
[2016-11-21 06:39] LABS: ABSOLUTE NEUTROPHIL CT (ANC) 19.1 K/uL (1.4-9.0); BANDED NEUTROPHIL # 2.8 K/uL (0.0-0.1); BANDED NEUTROPHILS % 13 %; LYMPHOCYTE # 1.5 K/uL (0.8-4.0); LYMPHOCYTE % 7 %; MONOCYTE # 0.9 K/uL (0.0-1.0); SEGMENTED NEUTROPHIL # 16.3 K/uL (1.4-9.0); SEGMENTED NEUTROPHIL % 76 %
[2016-11-21 08:45] LABS: BICARBONATE 21.5 mmol/L (18.0-23.0); LACTATE 1.5 mEq/L (0.50-1.60); PCO2 38 mmHg (35-45); PO2 169 mmHg (80-90)
[2016-11-21 08:47] LABS: HEMATOCRIT 25.5 % (37.0-53.0); MCH 30.1 pg (27.0-34.0); MCHC 35.3 gm/dL (32.0-36.5); MCV 85.3 fl (83.0-98.0); MPV 10.8 fl (9.4-12.4); RBC 2.99 M/uL (4.00-6.00); RDW-CV 14.4 % (11.9-14.6)
[2016-11-21 08:50] LABS: WBC 20.3 K/uL (4.0-11.0)
[2016-11-21 08:55] LABS: INR - (THERAPEUTIC) 1.05 (0.92-1.07)
[2016-11-21 09:02] LABS: ANION GAP 12.9 (10.0-19.0); CREATININE 1.2 mg/dL (0.6-1.3); POTASSIUM 4.9 mMol/L (3.7-5.1)
[2016-11-22 05:10] LABS: ALK PHOS 43 IU/L (33-138); ALT 53 IU/L (12-78); ANION GAP 10.3 (10.0-19.0); AST 49 IU/L (10-40); BLOOD UREA NITROGEN 15 mg/dL (6-24); CHLORIDE 109 mMol/L (96-110); CO2 24 mMol/L (22-32); CREATININE 0.8 mg/dL (0.6-1.3); POTASSIUM 3.3 mMol/L (3.7-5.1); SODIUM 140 mMol/L (135-145)
[2016-11-22 05:11] LABS: ALBUMIN 1.8 gm/dL (3.5-5.0); CALCIUM 7.1 mg/dL (8.5-10.5); TOTAL BILIRUBIN 0.5 mg/dL (0.0-1.5); TOTAL PROTEIN 4.6 g/dL (6.0-8.4)
[2016-11-22 05:45] LABS: BASOPHIL % 0.2 %; EOSINOPHIL # 0.1 K/uL (0.0-0.5); EOSINOPHIL % 1.1 %; IMMATURE GRANULOCYTE # 0.1 K/uL (0.0-0.3); IMMATURE GRANULOCYTE % 0.8 %; LYMPHOCYTE # 1.2 K/uL (0.8-4.0); LYMPHOCYTE % 10.7 %; MCV 85.9 fl (83.0-98.0); MONOCYTE % 8.5 %; MPV 10.9 fl (9.4-12.4); NEUTROPHIL # (ANC) 9.1 K/uL (1.4-9.0); NEUTROPHIL % 78.7 %; NRBC % 0 /100WBC (0-0.00); RDW-CV 14.5 % (11.9-14.6); WBC 11.6 K/uL (4.0-11.0)
[2016-11-22 05:46] LABS: HEMATOCRIT 18.9 % (37.0-53.0); HEMOGLOBIN 6.8 g/dL (12.0-17.0); MCH 30.9 pg (27.0-34.0); PLATELET COUNT 148 K/uL (150-450)
[2016-11-22 06:57] LABS: HEMATOCRIT 18.8 % (37.0-53.0)
[2016-11-22 06:58] LABS: HEMOGLOBIN 6.5 g/dL (12.0-17.0)
== END 2016-11-22 18:20 | disposition hospice, home (50) | DRG 853 ==
LOC: GICU 12:25 → GPCU 12:25 → GICU 20:25
PROVIDERS: Internal Medicine; Internal Medicine Critical Care Medicine; Surgery Vascular Surgery; ADMIT Internal Medicine
PROC: 04QK0ZZ Repair Right Femoral Artery, Open Approach (ICD-10-PCS; principal; 2016-11-20)
PROC: 05HM33Z Insertion of Infusion Device into Right Internal Jugular Vein, Percutaneous Approach (ICD-10-PCS; principal; 2016-11-20)
DX: A41.02 Sepsis due to Methicillin resistant Staphylococcus aureus (principal); J96.01 Acute respiratory failure with hypoxia; I25.42 Coronary artery dissection; R65.21 Severe sepsis with septic shock; N17.9 Acute kidney failure, unspecified; D62 Acute posthemorrhagic anemia; E87.1 Hypo-osmolality and hyponatremia; L03.90 Cellulitis, unspecified; D72.829 Elevated white blood cell count, unspecified; E11.9 Type 2 diabetes mellitus without complications; I10 Essential (primary) hypertension; I73.9 Peripheral vascular disease, unspecified; E66.9 Obesity, unspecified; Z68.25 Body mass index [BMI] 25.0-25.9, adult; F17.200 Nicotine dependence, unspecified, uncomplicated; I72.4 Aneurysm of artery of lower extremity
CPT/HCPCS: C9113; J0610; J0690; J1644; J2001; J2020; J2250; J2370; J2543; J2720; J3010; J3370; J3480; J7030; J7040; J7050; J7060; J7120; J7121; P9016; P9045; P9047

== ENCOUNTER → 2016-11-20 | Outpatient (CLI) | payer OTHER ==
[~2016-11-20] MED LIST changes: +ALIGN4 MG; +DOXYCYCLINE100 MG PO; +LEVAQUIN500 MG PO
== END | disposition disaster alternative care site (69) ==
LOC: GAMB 11:12
DX: R50.9 Fever, unspecified (principal); B95.8 Unspecified staphylococcus as the cause of diseases classified elsewhere; R11.2 Nausea with vomiting, unspecified; Z79.84 Long term (current) use of oral hypoglycemic drugs; Z79.01 Long term (current) use of anticoagulants; Z79.899 Other long term (current) drug therapy
CPT/HCPCS: A0425; A0426